=== PATIENT | female | born 1930 | race Caucasian/White ===

== ENCOUNTER 2017-09-18 12:50 | Emergency (ER) | payer MEDICARE ==
[2017-09-18] MEDS ORDERED: Sodium Chloride 0.9% 1000 ML 1,000 ML ONE (13:12)
[2017-09-18] MEDS ORDERED: Sodium Chloride 0.9% 1000 ML 1,000 ML IV SCH (13:15)
--- NOTE | 2017-09-18 13:20 | ERPHSYRPT ---
- History of Present Illness Time Seen by Provider: 09/18/17 13:19 Source: patient, EMS Exam Limitations: no limitations Patient Subjective Stated Complaint: PT ALERT, RESP EASY, SKIN W/D PINK,. PT HAS EDEMA TO LOWER LEGS Triage Nursing Assessment: PT HERE FOR DIZZINESS AND WEAKNESS THAT STARTED TODAY , PT DENIES NAUSEA, FEVER, COUGH Physician History: Came to the emergency room with complaining of dizziness and worsening pedal edema. Patient has a history of myelodysplastic syndrome. Patient denies any shortness of breath, chest pain, nausea, vomiting, abdominal pain, diarrhea, rectal bleeding, hematemesis. Timing/Duration: today Associated Symptoms: denies symptoms Allergies/Adverse Reactions: butorphanol tartrate [From Stadol] Allergy (Severe, Verified 09/18/17 13:04) diphenhydramine HCl [From Benadryl] Allergy (Severe, Verified 09/18/17 13:04) indomethacin [From Indocin] Allergy (Severe, Verified 09/18/17 13:04) indomethacin sodium [From Indocin] Allergy (Severe, Verified 09/18/17 13:04) leflunomide [From Arava] Allergy (Severe, Verified 09/18/17 13:04) meperidine HCl [From Demerol] Allergy (Severe, Verified 09/18/17 13:04) metformin HCl [From Glucophage] Allergy (Severe, Verified 09/18/17 13:04) morphine Allergy (Severe, Verified 09/18/17 13:04) nalbuphine HCl [From Nubain] Allergy (Severe, Verified 09/18/17 13:04) promethazine HCl [From Phenergan] Allergy (Severe, Verified 09/18/17 13:04) quinine [Quinine] Allergy (Severe, Verified 09/18/17 13:04) Sulfa (Sulfonamide Antibiotics) [Sulfa(Sulfonamide Antibiotics)] Allergy (Severe , Verified 09/18/17 13:04) infliximab [From Remicade] Adverse Reaction (Unknown, Verified 09/18/17 13:04) Home Medications: Furosemide 40 mg [Lasix 40 MG] 20 mg PO DAILY 03/17/12 [History] Glimepiride 2 mg [Amaryl 2 MG] 2 mg PO DAILY 03/17/12 [History] Metoprolol Succinate 25 mg Xl* [Toprol-Xl 25MG Tablets] 25 mg PO BID [History] Telmisartan 80 mg [Micardis 80 MG Tablet] 80 mg PO DAILY 11/26/14 [History ] Aspirin 81 gm Chew [Baby Aspirin 81 mg Chew] 81 mg PO DAILY 12/09/15 [ History] Atorvastatin Calcium [Lipitor 40Mg] 40 mg PO QHS 07/23/16 [History] Ergocalciferol (Vitamin D2) [Vitamin D] 50,000 unit PO WEEKLY 11/30/16 [History] Ferrous Sulfate 325 mg [Feosol 325 mg] 325 mg .ROUTE BID 09/18/17 [History ] Hx Tetanus, Diphtheria Vaccination/Date Given: Yes Hx Influenza Vaccination/Date Given: Yes Hx Pneumococcal Vaccination/Date Given: Yes Immunizations Up to Date: Yes - Review of Systems Constitutional: Fatigue, Weakness, No Fever, No Chills Eyes: No Symptoms Ears, Nose, & Throat: No Symptoms Respiratory: No Cough, No Dyspnea Cardiac: No Chest Pain, No Edema, No Syncope Abdominal/Gastrointestinal: No Abdominal Pain, No Nausea, No Vomiting, No Diarrhea Genitourinary Symptoms: No Dysuria Musculoskeletal: No Back Pain, No Neck Pain Skin: No Rash Neurological: No Dizziness, No Focal Weakness, No Sensory Changes Psychological: No Symptoms Endocrine: No Symptoms All Other Systems: Reviewed and Negative - Past Medical History Pertinent Past Medical History: Yes Neurological History: Migraines ENT History: Cataracts Cardiac History: Angina, Coronary Artery Disease, High Cholesterol, Hypertension , Myocardial Infarction ([place]) Respiratory History: CHF, Pulmonary Embolism, Other Endocrine Medical History: Diabetes Type I Musculoskeletal History: Arthritis, Fractures, Osteoarthritis, Rheumatoid Arthritis GI Medical History: No Pertinent History History: No Pertinent History Psycho-Social History: No Pertinent History Female Reproductive Disorders: Breast Cancer, Fibroids Other Medical History: interstial lung disease, pt states hairline fx in foot, MDS - Past Surgical History Past Surgical History: Yes Neuro Surgical History: No Pertinent History Cardiac: Cardiac Catheterization, Cardiac Stent Respiratory: Other Gastrointestinal: Appendectomy, Bowel Surgery, Other Genitourinary: No Pertinent History Musculoskeletal: Joint Replacement Female Surgical History: Hysterectomy, Lumpectomy, Other Other Surgical History: colostomy - Social History Smoking Status: Former smoker How long have you smoked: 15 Exposure to second hand smoke: No Drug Use: none Patient Lives Alone: No - Female History Hx Last Menstrual Period: POST Hx Now: No - Nursing Vital Signs Nursing Vital Signs: Initial Vital Signs Temperature 97.0 F 09/18/17 12:52 Pulse Rate 81 09/18/17 12:52 Respiratory Rate 28 H 09/18/17 12:52 Blood Pressure 125/54 09/18/17 12:52 O2 Sat by Pulse Oximetry 99 09/18/17 12:52 Pain Scale Pain Intensity 0 - Physical Exam General Appearance: no apparent distress, alert Eye Exam: PERRL/EOMI, eyes nml inspection Ears, Nose, Throat Exam: normal ENT inspection, TMs normal, pharynx normal, moist mucous membranes Neck Exam: normal inspection, non-tender, supple, full range of motion Respiratory Exam: normal breath sounds, lungs clear, No respiratory distress Cardiovascular Exam: regular rate/rhythm, normal heart sounds, normal peripheral pulses Gastrointestinal/Abdomen Exam: soft, normal bowel sounds, No tenderness, No mass Back Exam: normal inspection, normal range of motion, No CVA tenderness, No vertebral tenderness Extremity Exam: normal inspection, normal range of motion, pelvis stable Neurologic Exam: alert, oriented x 3, cooperative, normal mood/affect, nml cerebellar function, nml station & gait, sensation nml, No motor deficits Skin Exam: normal color, warm, dry, No rash Lymphatic Exam: No adenopathy SpO2: 99 Oxygen Delivery: Room Air - Course Nursing assessment & vital signs reviewed: Yes Ordered Tests: Active Orders 24 hr Category Date Time Status EKG-ER Only STAT Care 09/18/17 13:01 Active CHEST 2 VIEWS (PA AND LAT) Stat Exams 09/18/17 13:02 Taken CBC W DIFF Stat Lab 09/18/17 13:19 Completed CMP Stat Lab 09/18/17 13:19 Completed TROPONIN Stat Lab 09/18/17 13:19 Completed Medication Summary Generic Name Dose Route Start Last Admin Trade Name Freq PRN Reason Stop Dose Admin Sodium Chloride 1,000 mls @ 50 mls/hr 09/18/17 13:15 09/18/17 13:13 Sodium Chloride 0.9% 1000 Ml IV 10/18/17 13:14 50 mls/hr .Q20H MARIS Administration Lab/Rad Data: Laboratory Result Diagrams 09/18/17 13:19 09/18/17 13:19 Laboratory Results 09/18/17 09/18/17 09/18/17 Range/Units 13:19 13:19 13:19 WBC 7.7 (4.0-10.5) K/mm3 RBC 3.86 L (4.1-5.4) M/mm3 Hgb 11.5 L (12.0-16.0) gm/dl Hct 36.0 (35-47) % MCV 93.3 (78-100) fl MCH 29.7 (26-32) pg MCHC 31.9 L (32-36) g/dl RDW 13.5 (11.5-14.0) % Plt Count 236 (150-450) K/mm3 MPV 11.4 H (6-9.5) fl Gran % 64.1 (36.0-66.0) % Lymphocytes % 22.4 L (24.0-44.0) % Monocytes % 11.8 (0.0-12.0) % Eosinophils % 1.6 (0.00-5.0) % Basophils % 0.1 (0.0-0.4) % Basophils # 0.01 (0-0.4) Sodium 137 (136-145) mEq/L Potassium 4.5 (3.5-5.1) mEq/L Chloride 100 (98-107) mEq/L Carbon Dioxide 24.4 (21-32) mEq/L Anion Gap 17.0 H (5-15) MEQ/L BUN 42 H (9-20) mg/dL Creatinine 1.63 H (0.55-1.30) mg/dl Estimated GFR 32 ML/MIN Glucose 281 H (70-110) MG/DL Calcium 10.9 H (8.5-10.1) mg/dL Total Bilirubin 0.50 (0.2-1.0) mg/dL AST 22 (15-37) U/L ALT 24 (12-78) U/L Alkaline Phosphatase 96 (46-116) U/L Troponin I < 0.017 (0.000-0.056) ng/ml Serum Total Protein 7.5 (6.4-8.2) gm/dL Albumin 3.3 L (3.4-5.0) g/dL - Progress Progress: improved Counseled pt/family regarding: lab results, diagnosis, need for follow-up, rad results - Departure Time of Disposition: 14:10 Departure Disposition: Home Clinical Impression: Dizziness Chronic kidney disease Qualifiers: Chronic kidney disease stage: stage 3 (moderate) Qualified Code(s): N18.3 - Chronic kidney disease, stage 3 (moderate) Condition: Stable Critical Care Time: Yes Critical Care Time(excluding separately billable procedures): 30-74 minutes Referrals: SHITAL COLEMAN [Primary Care Provider] - Additional Instructions: Please follow the instructions given to you. Please take your medication as prescribed if given. If symptoms recur or get worse, come back to the emergency room if you cannot reach your primary care physician, or call your primary care physician for an appointment. Again if your symptoms get worse, come back to the emergency room. Thanks for visiting emergency room, and let us take care of you.
[2017-09-18 13:25] LABS: BASOPHIL % 0.1 % (0.0-0.4); Eosinophil % 1.6 % (0.00-5.0); Granulocytes % 64.1 % (36.0-66.0); Lymphocytes % 22.4 % (24.0-44.0); Mean Cell Volume 93.3 fl (78-100); Mean Platelet Volume 11.4 fl (6-9.5); Monocytes % 11.8 % (0.0-12.0); Platelet Count 236 K/mm3 (150-450); Red Blood Count 3.86 M/mm3 (4.1-5.4); Red Cell Distribution Width 13.5 % (11.5-14.0); White Blood Count 7.7 K/mm3 (4.0-10.5)
[2017-09-18 13:26] LABS: Mean Corpuscular Hemoglobin 29.7 pg (26-32)
[2017-09-18 13:53] LABS: ALBUMIN 3.3 g/dL (3.4-5.0); BILIRUBIN,TOTAL 0.5 mg/dL (0.2-1.0); Carbon Dioxide 24.4 mEq/L (21-32); Potassium 4.5 mEq/L (3.5-5.1); Total Protein 7.5 gm/dL (6.4-8.2)
[2017-09-18 13:55] VITALS: BP 127/57; PULSE 74
[2017-09-18 13:59] VITALS: O2SAT 99
--- NOTE | 2017-09-18 21:44 | XRAY ---
Indication: Weakness. Comparison: November 03, 2015. AP/lateral chest remains clear again with incidental calcified granulomas and azygos lobe. Heart is not enlarged. Vascularity normal. Aorta remains mildly calcified. Bony thorax intact again with osteopenia and degenerative changes. Impression: Stable nonacute chest with chronic features.
== END 2017-09-18 14:27 | disposition home or self-care (01) ==
LOC: ED 12:50
DX: R42 Dizziness and giddiness (principal); N18.3 Chronic kidney disease, stage 3 (moderate); R53.83 Other fatigue; I50.9 Heart failure, unspecified; I25.10 Atherosclerotic heart disease of native coronary artery without angina pectoris; E78.00 Pure hypercholesterolemia, unspecified; I10 Essential (primary) hypertension; I25.2 Old myocardial infarction; I26.99 Other pulmonary embolism without acute cor pulmonale; Z79.899 Other long term (current) drug therapy
CPT/HCPCS: 36000; 36415; 71020; 80053; 84484; 85025; 93005; 96360; 99284

== ENCOUNTER 2018-02-24 15:35 | Observation (INO) | payer MEDICARE ==
[2018-02-24 16:18] LABS: BASOPHIL % 0.3 % (0.0-0.4); Basophil (Absolute #) 0.02 (0-0.4); Eosinophil % 1.8 % (0.00-5.0); Eosinophil (Absolute #) 0.14 (0-0.5); Granulocyte Absolute (ANC) 5.16 (1.4-6.9); Granulocytes % 67.5 % (36.0-66.0); Hematocrit 36.9 % (35-47); Hemoglobin 11.9 gm/dl (12.0-16.0); Lymphocyte (Absolute #) 1.61 (1.0-4.6); Mean Cell Volume 94.4 fl (78-100); Mean Corpuscular Hemoglobin 30.4 pg (26-32); Mean Corpuscular Hgb Concent. 32.2 g/dl (32-36); Mean Platelet Volume 10.9 fl (6-9.5); Monocyte (Absolute #) 0.72 (0.0-1.3); Monocytes % 9.4 % (0.0-12.0); Platelet Count 274 K/mm3 (150-450); Red Blood Count 3.91 M/mm3 (4.1-5.4); White Blood Count 7.7 K/mm3 (4.0-10.5)
--- NOTE | 2018-02-24 16:23 | ERPHSYRPT ---
- History of Present Illness Time Seen by Provider: 02/24/18 16:07 Historian: patient, other (daughter) Exam Limitations: other (poor historian) Patient Subjective Stated Complaint: pt here for chest pain off and on today, 3 episodes today to center of chest nonradiating. no pain at present time, pt had nitro and asa today Triage Nursing Assessment: pt alert, resp easy, skin w/d/p,abd soft, edema to lower legs, pt deneis any pain at present Physician History: Pt started c/o sternal chest pain off and on since this morning. According to her daughter, she had similar chest pains over the weekend, she took her to her [employer], who gave her new NTG prescriptions, since the old ones were outdated. She was given ASA and NTG by EMS, states her pain improved, but did not resolve completely. Timing/Duration: today, improved Activities at Onset: none Quality: dullness, pressure Location: central Chest Pain Radiation: no radiation Severity of Pain-Max: moderate Severity of Pain-Current: mild Modifying Factors: Improves With: nothing Associated Symptoms: denies symptoms Prior Chest Pain/Cardiac Workup: cardiac cath, heart attack Nitro Today/Relief: 0.4 mg x 3 Aspirin Treatment Today: 81 mg x 4 Allergies/Adverse Reactions: butorphanol tartrate [From Stadol] Allergy (Severe, Verified 02/24/18 15:48) diphenhydramine HCl [From Benadryl] Allergy (Severe, Verified 02/24/18 15:48) indomethacin [From Indocin] Allergy (Severe, Verified 02/24/18 15:48) indomethacin sodium [From Indocin] Allergy (Severe, Verified 02/24/18 15:48) leflunomide [From Arava] Allergy (Severe, Verified 02/24/18 15:48) meperidine HCl [From Demerol] Allergy (Severe, Verified 02/24/18 15:48) metformin HCl [From Glucophage] Allergy (Severe, Verified 02/24/18 15:48) morphine Allergy (Severe, Verified 02/24/18 15:48) nalbuphine HCl [From Nubain] Allergy (Severe, Verified 02/24/18 15:48) promethazine HCl [From Phenergan] Allergy (Severe, Verified 02/24/18 15:48) quinine [Quinine] Allergy (Severe, Verified 02/24/18 15:48) Sulfa (Sulfonamide Antibiotics) [Sulfa(Sulfonamide Antibiotics)] Allergy (Severe , Verified 02/24/18 15:48) infliximab [From Remicade] Adverse Reaction (Unknown, Verified 02/24/18 15:48) Home Medications: Furosemide 40 mg [Lasix 40 MG] 20 mg PO UD 03/17/12 [History] Glimepiride 2 mg [Amaryl 2 MG] 2 mg PO DAILY 03/17/12 [History] Metoprolol Succinate 25 mg Xl* [Toprol-Xl 25MG Tablets] 25 mg PO BID [History] Telmisartan 80 mg [Micardis 80 MG Tablet] 80 mg PO DAILY 11/26/14 [History ] Aspirin 81 gm Chew [Baby Aspirin 81 mg Chew] 81 mg PO DAILY 12/09/15 [ History] Atorvastatin Calcium [Lipitor 40Mg] 40 mg PO QHS 07/23/16 [History] Nifedipine Xl 30 mg [Adalat CC 30 MG TABLET] 30 mg PO BID 10/25/17 [ History] Potassium Chloride 10 Meq Tab* [Klor Con 10 MEQ] 10 meq PO DAILY 10/25/17 [ History] Sitagliptin Phosphate 50 MG [Januvia 50 MG] 25 mg PO DAILY 10/25/17 [ History] Acetaminophen [Tylenol Arthritis] 650 mg PO BID 11/16/17 [History] Ferrous Sulfate 325 mg [Feosol 325 mg] 325 mg PO BID 12/27/17 [History] Hx Tetanus, Diphtheria Vaccination/Date Given: Yes Hx Influenza Vaccination/Date Given: Yes Hx Pneumococcal Vaccination/Date Given: Yes Immunizations Up to Date: Yes - Review of Systems Constitutional: No Symptoms Respiratory: No Symptoms Cardiac: Chest Pain, Edema All Other Systems: Reviewed and Negative - Past Medical History Pertinent Past Medical History: Yes Neurological History: Dementia, Migraines ENT History: Cataracts Cardiac History: Angina, Coronary Artery Disease, High Cholesterol, Hypertension , Myocardial Infarction ([place]) Respiratory History: CHF, Pulmonary Embolism, Other Endocrine Medical History: Diabetes Type I Musculoskeletal History: Arthritis, Fractures, Osteoarthritis, Rheumatoid Arthritis GI Medical History: No Pertinent History History: No Pertinent History Psycho-Social History: No Pertinent History Female Reproductive Disorders: Breast Cancer, Fibroids Other Medical History: interstial lung disease, pt states hairline fx in foot, MDS - Past Surgical History Past Surgical History: Yes Neuro Surgical History: No Pertinent History Cardiac: Cardiac Catheterization, Cardiac Stent Respiratory: Other Gastrointestinal: Appendectomy, Bowel Surgery, Other Genitourinary: No Pertinent History Musculoskeletal: Joint Replacement Female Surgical History: Hysterectomy, Lumpectomy, Other Other Surgical History: colostomy - Social History Smoking Status: Former smoker How long have you smoked: 15 Exposure to second hand smoke: No Drug Use: none Patient Lives Alone: No (long term) - Female History Hx Last Menstrual Period: post Hx Now: No - Nursing Vital Signs Nursing Vital Signs: Initial Vital Signs Temperature 97.6 F 02/24/18 15:36 Pulse Rate 77 02/24/18 15:36 Respiratory Rate 20 02/24/18 15:36 Blood Pressure 143/69 02/24/18 15:36 O2 Sat by Pulse Oximetry 99 02/24/18 15:36 Pain Scale Pain Intensity 0 - Physical Exam General Appearance: no apparent distress Eye Exam: eyes nml inspection Ears, Nose, Throat Exam: normal ENT inspection Neck Exam: normal inspection, non-tender, supple, No JVD Respiratory Exam: normal breath sounds, lungs clear, airway intact, No chest tenderness, No respiratory distress Cardiovascular Exam: regular rate/rhythm, normal heart sounds, normal peripheral pulses, edema, other (chronic edema and stasis on both sides.), No murmur Gastrointestinal/Abdomen Exam: soft, normal bowel sounds, No tenderness, No distention Back Exam: normal inspection Extremity Exam: pedal edema, swelling, No calf tenderness, No abrahan's sign Skin Exam: normal color, warm, dry Lymphatic Exam: No adenopathy SpO2 Interpretation: normal SpO2: 99 Oxygen Delivery: Room Air - Course Nursing assessment & vital signs reviewed: Yes EKG Interpreted by Me: RATE (71/min), Left Sidney Deviation, Right Bundle Branch Block, Non-specific ST Changes - Radiology Exams Chest X-ray Interpretation: Interpreted by me, Negative Ordered Tests: Active Orders 24 hr Category Date Time Status Bedrest with BRP/BSC ROUTINE Activity 02/24/18 17:37 Ordered Substance Abuse Rn STAT Care 02/24/18 16:06 Active Code Status Order ROUTINE Care 02/24/18 17:37 Ordered EKG-ER Only STAT Care 02/24/18 16:05 Active IV Care Q6H Care 02/24/18 17:37 Ordered IV Insertion STAT Care 02/24/18 16:05 Active Implement Chest Pain Pathway ROUTINE Care 02/24/18 17:37 Ordered Oxygen-ED Only NASAL CANNULA 2 lpm Care 02/24/18 16:[address] in Observation ROUTINE Care 02/24/18 17:37 Ordered Pulse Oximetry (ED) STAT Care 02/24/18 16:05 Active Danny Izaguirre, Apply ROUTINE Care 02/24/18 17:37 Ordered Telemetry ROUTINE Care 02/24/18 17:37 Ordered Weight,Daily 0600 Care 02/24/18 17:37 Ordered Cardiac Diet Diet 02/24/18 Breakfast Ordered CHEST 1 VIEW (PORTABLE) Stat Exams 02/24/18 16:06 Taken CBC W DIFF Stat Lab 02/24/18 16:05 Completed CK-Creatinine Phosphokinase Stat Lab 02/24/18 16:20 Completed CMP Stat Lab 02/24/18 16:20 Completed LIPID PROFILE AM.LAB Lab 02/25/18 04:00 Ordered NT PRO BNP Stat Lab 02/24/18 16:20 Completed PROTIME WITH INR Stat Lab 02/24/18 16:05 Completed PTT Stat Lab 02/24/18 16:05 Completed TROPONIN AM.LAB Lab 02/25/18 04:00 Ordered TROPONIN Q3H Lab 02/24/18 16:15 Completed TROPONIN Q3H Lab 02/24/18 19:15 Ordered TROPONIN Q3H Lab 02/24/18 22:15 Ordered TROPONIN Q3H Lab 02/25/18 01:15 Ordered TROPONIN Q3H Lab 02/25/18 04:15 Ordered EKG Q8HX2,QAMX3,PRN RT 02/24/18 17:37 Ordered Pulse Oximetry Q4H RT 02/24/18 17:37 Ordered Medication Summary Generic Name Dose Route Start Last Admin Trade Name Freq PRN Reason Stop Dose Admin Acetaminophen 650 mg 02/24/18 17:37 Tylenol 325 Mg PO 03/26/18 17:36 Q4H PRN PRN PAIN AND/OR FEVER Al Hydrox/Mg Hydrox/Simethicone 30 ml 02/24/18 17:37 Maalox Es 30 Ml Unit Dose PO 03/26/18 17:36 Q4H PRN PRN INDIGESTION Aspirin 325 mg 02/25/18 10:00 Ecotrin 325 Mg PO 03/27/18 09:59 DAILY MARIS Magnesium Hydroxide 30 - 60 ml 02/24/18 17:37 Milk Of Magnesia 30 Ml PO 03/26/18 17:36 QDP PRN CONSTIPATION Ondansetron HCl 4 mg 02/24/18 17:37 Zofran 4 Mg/2 Ml Vial IV 03/26/18 17:36 Q4H PRN PRN NAUSEA/VOMITING Senna/Docusate Sodium 2 udtab 02/24/18 17:37 Senokot-S Tablet PO 03/26/18 17:36 BID PRN PRN CONSTIPATION Discontinued Medications Generic Name Dose Route Start Last Admin Trade Name Freq PRN Reason Stop Dose Admin Nitroglycerin 1 gm 02/24/18 17:36 Nitro-Bid 2% Ud Packets TOP 02/24/18 17:37 STAT ONE Lab/Rad Data: Laboratory Result Diagrams 02/24/18 16:05 02/24/18 16:20 Laboratory Results 02/24/18 02/24/18 02/24/18 Range/Units 16:20 16:15 16:05 WBC (4.0-10.5) K/mm3 RBC (4.1-5.4) M/mm3 Hgb (12.0-16.0) gm/dl Hct (35-47) % MCV (78-100) fl MCH (26-32) pg MCHC (32-36) g/dl RDW (11.5-14.0) % Plt Count (150-450) K/mm3 MPV (6-9.5) fl Gran % (36.0-66.0) % Eos # (Auto) (0-0.5) Absolute Lymphs (auto) (1.0-4.6) Absolute Monos (auto) (0.0-1.3) Lymphocytes % (24.0-44.0) % Monocytes % (0.0-12.0) % Eosinophils % (0.00-5.0) % Basophils % (0.0-0.4) % Absolute Granulocytes (1.4-6.9) Basophils # (0-0.4) PT 12.2 (9.95-12.35) SECONDS INR 1.10 (0.8-3.0) APTT 33.5 (25.3-37.0) SECONDS Sodium 139 (137-145) mmol/L Potassium 3.5 (3.5-5.1) mmol/L Chloride 103 (98-107) mmol/L Carbon Dioxide 27 (22-30) mmol/L Anion Gap 12.8 (5-15) MEQ/L BUN 27 H (7-17) mg/dL Creatinine 1.32 H (0.52-1.04) mg/dL Estimated GFR 40.3 ML/MIN Glucose 188 H (74-106) mg/dL Calcium 10.3 H (8.4-10.2) mg/dL Total Bilirubin 0.60 (0.2-1.3) mg/dL AST 17 (14-36) U/L ALT 16 (0-35) U/L Alkaline Phosphatase 129 H (38-126) U/L Creatine Kinase 27 L (30-135) U/L Troponin I < 0.012 (0.000-0.034) ng/mL NT-Pro-B Natriuret Pep 428 (0-1800) pg/mL Serum Total Protein 7.1 (6.3-8.2) g/dL Albumin 3.7 (3.5-5.0) g/dL 02/24/18 Range/Units 16:05 WBC 7.7 (4.0-10.5) K/mm3 RBC 3.91 L (4.1-5.4) M/mm3 Hgb 11.9 L (12.0-16.0) gm/dl Hct 36.9 (35-47) % MCV 94.4 (78-100) fl MCH 30.4 (26-32) pg MCHC 32.2 (32-36) g/dl RDW 14.0 (11.5-14.0) % Plt Count 274 (150-450) K/mm3 MPV 10.9 H (6-9.5) fl Gran % 67.5 H (36.0-66.0) % Eos # (Auto) 0.14 (0-0.5) Absolute Lymphs (auto) 1.61 (1.0-4.6) Absolute Monos (auto) 0.72 (0.0-1.3) Lymphocytes % 21.0 L (24.0-44.0) % Monocytes % 9.4 (0.0-12.0) % Eosinophils % 1.8 (0.00-5.0) % Basophils % 0.3 (0.0-0.4) % Absolute Granulocytes 5.16 (1.4-6.9) Basophils # 0.02 (0-0.4) PT (9.95-12.35) SECONDS INR (0.8-3.0) APTT (25.3-37.0) SECONDS Sodium (137-145) mmol/L Potassium (3.5-5.1) mmol/L Chloride (98-107) mmol/L Carbon Dioxide (22-30) mmol/L Anion Gap (5-15) MEQ/L BUN (7-17) mg/dL Creatinine (0.52-1.04) mg/dL Estimated GFR ML/MIN Glucose (74-106) mg/dL Calcium (8.4-10.2) mg/dL Total Bilirubin (0.2-1.3) mg/dL AST (14-36) U/L ALT (0-35) U/L Alkaline Phosphatase (38-126) U/L Creatine Kinase (30-135) U/L Troponin I (0.000-0.034) ng/mL NT-Pro-B Natriuret Pep (0-1800) pg/mL Serum Total Protein (6.3-8.2) g/dL Albumin (3.5-5.0) g/dL - Progress Progress: improved Air Movement: fair Progress Note: 02/24/18 17:40 Pt has been pain free, no sign of shortness of breath or distress, she has been comfortable. 02/24/18 17:[address] Renae, discussed her results and current condition, she agreed to admit her for Observation./ Discussed with : Oc Will see patient in: hospital (observation) - Departure Time of Disposition: 17:41 Departure Disposition: Observation Clinical Impression: Chest pain Qualifiers: Chest pain type: unspecified Qualified Code(s): R07.9 - Chest pain, unspecified Condition: Stable Critical Care Time: No Referrals: SHITAL COLEMAN [Primary Care Provider] -
[2018-02-24 16:48] LABS: INR 1.1 (0.8-3.0); PTT 33.5 SECONDS (25.3-37.0)
[2018-02-24 16:52] LABS: ALBUMIN 3.7 g/dL (3.5-5.0); ANION GAP 12.8 MEQ/L (5-15); BILIRUBIN,TOTAL 0.6 mg/dL (0.2-1.3); Calcium 10.3 mg/dL (8.4-10.2); Creatinine 1 1.32 mg/dL (0.52-1.04); Potassium 3.5 mmol/L (3.5-5.1); Total Protein 7.1 g/dL (6.3-8.2)
[2018-02-24] MEDS ORDERED: NITRO-BID 2% UD PACKETS TOP ONE (17:36)
[2018-02-24] MEDS ORDERED: Senokot-S Tablet PO PRN (17:37)
[2018-02-24] MEDS ORDERED: Zofran 4 MG/2 ML VIAL IV PRN (17:37)
[2018-02-24] MEDS ORDERED: TYLENOL 325 MG PO PRN ×2 (17:37→21:34)
[2018-02-24] MEDS ORDERED: MAALOX ES 30 ML UNIT DOSE PO PRN (17:37)
[2018-02-24] MEDS ORDERED: MILK OF MAGNESIA 30 ML PO PRN (17:37)
[2018-02-24] MEDS ORDERED: NITRO-BID 2% UD PACKETS ONE (17:47)
[2018-02-24] MEDS ORDERED: LIPITOR 40MG PO SCH (22:00)
--- NOTE | 2018-02-24 22:05 | XRAY ---
Indication: Chest pain. Comparison: September 18, 2017. Portable chest remains clear again with incidental scattered calcified granulomas and anatomic variants for azygos lobe. Heart is not enlarged. Stable aortic calcifications. Bony thorax intact again with mild osteopenia and degenerative changes. Impression: Stable nonacute chest with chronic features.
[2018-02-24] MEDS ORDERED: ZOCOR 20MG ONE (22:38)
[2018-02-24] MEDS: ZOCOR 20MG PO SCH (22:44)
[2018-02-24] MEDS: FEOSOL 325 MG PO SCH (22:45)
[2018-02-24] MEDS: Toprol-Xl 25MG Tablets PO SCH (22:45)
[2018-02-24] MEDS: Adalat CC 30 MG TABLET PO SCH (22:45)
[2018-02-24] MEDS: NovoLOG Insulin SQ PRN (22:46)
[2018-02-25 06:16] LABS: Cholesterol 142 mg/dL (50-200); HDL CHOLESTEROL 31 mg/dL (40-60); Risk Ratio 4.6; TRIGLYCERIDE 221 mg/dL (30-150)
[2018-02-25 06:29] LABS: LDL, DIRECT 64 mg/dL (30-100)
[2018-02-25 06:37] LABS: TROPONIN < 0.012 ng/mL (0.000-0.034)
[2018-02-25] MEDS ORDERED: Ecotrin 325 MG PO SCH (10:00)
[2018-02-25] MEDS: Toprol-Xl 25MG Tablets PO SCH ×2 (10:36→23:08)
[2018-02-25] MEDS: Adalat CC 30 MG TABLET PO SCH ×2 (10:36→23:08)
[2018-02-25] MEDS: FEOSOL 325 MG PO SCH ×2 (10:36→23:08)
[2018-02-25] MEDS: NovoLOG Insulin SQ PRN ×2 (11:38→17:44)
--- NOTE | 2018-02-25 12:46 | PCM.SSS ---
History of Present Illness - Chief Complaint Chief Complaint: Chest Pain History of Present Illness: is a 87 year old female with known CAD who came to ER with chest pain and was admitted to rule out NH. She started having substernal and L-and R- sided burning chest pain 6d ago. She saw Dr. Villa 4d ago and he renewed her nitro rx, which was old. The pain started again yesterday and she took nitro x 3 without relief so came to ER. Her pain resolved in the ER but she was kept for observation on telemetry. Her troponins have been normal x 5. EKGs without acute change. She is complaining this morning of 5/10 burning chest pain. The nurse noted she took her pills while lying down and this has happened to her in this instance before. She has a history of remote cardiac catheterization with stent placement. Last stress test probably 3-[address] Villa asked at the last appointment if she would like any procedures/testing done, and the pt refused. She is a fairly poor historian, but her daughter is at bedside. Pt is AAO x 3. - Review of Systems Cardiac: Chest Pain Musculoskeletal: Back Pain (chronic) Psychological: Depression, Suicidal Ideations (has thought about it a time or two but no current suicidal ideation) Hematologic/Lymphatic: Anemia All Other Systems: Reviewed and Negative Medications & Allergies Home Medications: Home Medication List Furosemide 40 mg [Lasix 40 MG] 20 mg PO UD 03/17/12 [History Confirmed ] Glimepiride 2 mg [Amaryl 2 MG] 2 mg PO DAILY 03/17/12 [History Confirmed 02/24/18] Metoprolol Succinate 25 mg Xl* [Toprol-Xl 25MG Tablets] 25 mg PO BID [History Confirmed 02/24/18] Telmisartan 80 mg [Micardis 80 MG Tablet] 80 mg PO DAILY 11/26/14 [ History Confirmed 02/24/18] Aspirin 81 gm Chew [Baby Aspirin 81 mg Chew] 81 mg PO DAILY 12/09/15 [ History Confirmed 02/24/18] Atorvastatin Calcium [Lipitor 40Mg] 40 mg PO QHS 07/23/16 [History Confirmed ] Nifedipine Xl 30 mg [Adalat CC 30 MG TABLET] 30 mg PO BID 10/25/17 [ History Confirmed 02/24/18] Potassium Chloride 10 Meq Tab* [Klor Con 10 MEQ] 10 meq PO DAILY 10/25/17 [ History Confirmed 02/24/18] Sitagliptin Phosphate 50 MG [Januvia 50 MG] 25 mg PO DAILY 10/25/17 [ History Confirmed 02/24/18] Acetaminophen [Tylenol Arthritis] 650 mg PO BID 11/16/17 [History Confirmed ] Ferrous Sulfate 325 mg [Feosol 325 mg] 325 mg PO BID 12/27/17 [History Confirmed 02/24/18] Allergies/Adverse Reactions: Allergies Allergy/AdvReac Type Severity Reaction Status Date / Time butorphanol tartrate Allergy Severe Verified 02/24/18 15:48 [From Stadol] diphenhydramine HCl Allergy Severe Verified 02/24/18 15:48 [From Benadryl] indomethacin [From Indocin] Allergy Severe Verified 02/24/18 15:48 indomethacin sodium Allergy Severe Verified 02/24/18 15:48 [From Indocin] leflunomide [From Arava] Allergy Severe Verified 02/24/18 15:48 meperidine HCl [From Demerol] Allergy Severe Verified 02/24/18 15:48 metformin HCl Allergy Severe Verified 02/24/18 15:48 [From Glucophage] morphine Allergy Severe Verified 02/24/18 15:48 nalbuphine HCl [From Nubain] Allergy Severe Verified 02/24/18 15:48 promethazine HCl Allergy Severe Verified 02/24/18 15:48 [From Phenergan] quinine [Quinine] Allergy Severe Verified 02/24/18 15:48 Sulfa (Sulfonamide Allergy Severe Verified 02/24/18 15:48 Antibiotics) [Sulfa(Sulfonamide Antibiotics)] infliximab [From Remicade] AdvReac Unknown Verified 02/24/18 15:48 - Past Medical History Past Medical History: Yes Neurological History: Dementia ENT History: Cataracts Cardiac History: Angina, Coronary Artery Disease, High Cholesterol, Hypertension , Myocardial Infarction (NH) Respiratory History: CHF, Pulmonary Embolism, Other Endocrine Medical History: Diabetes Type II Musculoskelatal History: Arthritis, Fractures, Osteoarthritis, Rheumatoid Arthritis GI Medical History: No Pertinent History History: No Pertinent History Pyscho-Social History: No Pertinent History Reproductive Disorders: Breast Cancer, Fibroids Comment: interstial lung disease, pt states hairline fx in foot,MDS - Female History Hx Last Menstrual Period: post Are you now?: No - Past Surgical History Past Surgical History: Yes Neuro Surgical History: No Pertinent History Cardiac History: Cardiac Catheterization, Cardiac Stent Respiratory Surgery: Other GI Surgical History: Appendectomy, Bowel Surgery, Other Genitourinary Surgical Hx: No Pertinent History Musculskeletal Surgical Hx: Joint Replacement Female Surgical History: Hysterectomy, Lumpectomy, Other Other Surgical History: colostomy - Social History Smoking Status: Former smoker How long have you smoked: 15 Exposure to second hand smoke: No Alcohol: None Drug Use: none - Physical Exam Vital Signs: Vital Signs - 24 hr Temp Pulse Pulse Resp BP Pulse Ox 02/25/18 11:16 98.6 F 72 16 142/62 96 02/25/18 08:00 97 02/25/18 07:22 98.7 F 70 16 148/68 97 02/25/18 07:21 99 02/25/18 04:00 97.9 F 75 20 160/70 99 02/25/18 00:00 97.6 F 75 18 171/76 96 02/24/18 20:01 97.9 F 83 19 186/77 98 02/24/18 20:00 97 02/24/18 19:55 97.9 F 83 19 186/77 98 02/24/18 19:40 98 02/24/18 17:52 76 16 163/89 99 02/24/18 17:41 99 02/24/18 17:03 80 18 168/94 99 02/24/18 16:44 72 16 152/81 98 02/24/18 16:41 98 02/24/18 15:40 75 02/24/18 15:36 97.6 F 77 20 143/69 99 Oxygen-Last 24 hours O2 Percentage 2 Liters = 28% O2 Percentage 2 Liters = 28% O2 Percentage 2 Liters = 28% O2 Percentage 2 Liters = 28% O2 Percentage 2 Liters = 28% O2 Percentage 2 Liters = 28% O2 Percentage 2 Liters = 28% O2 Percentage 2 Liters = 28% General Appearance: no apparent distress, alert, anxiety Neurologic Exam: oriented x 3, cooperative Eye Exam: eyes nml inspection Ears, Nose, Throat Exam: moist mucous membranes Neck Exam: normal inspection, non-tender, supple, No lymphadenopathy Respiratory Exam: normal breath sounds, lungs clear, crackles/rales (faint bibasilar), No rhonchi, No wheezing Cardiovascular Exam: regular rate/rhythm, normal heart sounds, No murmur Gastrointestinal/Abdomen Exam: soft, normal bowel sounds, other (colostomy present LLQ), No tenderness, No distention, No mass, No guarding, No rebound Back Exam: normal inspection, No rash Extremity Exam: swelling (2+ pretibial edema LLE with chronic venous changes distally. 1+ pretibial edema RLE) Skin Exam: normal color, warm, dry, No rash Results - Labs Lab/Micro Results: Accuchecks Date 02/25/18 Date 02/24/18 Time 07:30 Time 22:00 Accucheck Value: 125 Accucheck Value: 227 Lab Results-Last 24 Hours 02/24/18 02/24/18 02/25/18 Range/Units 19:30 22:33 01:30 Troponin I < 0.012 < 0.012 < 0.012 (0.000-0.034) ng/mL Triglycerides (30-150) mg/dL Cholesterol (50-200) mg/dL LDL Cholesterol (30-100) mg/dL HDL Cholesterol (40-60) mg/dL Heart Disease Risk Ratio 02/25/18 Range/Units 05:35 Troponin I < 0.012 (0.000-0.034) ng/mL Triglycerides 221 H (30-150) mg/dL Cholesterol 142 (50-200) mg/dL LDL Cholesterol 64 (30-100) mg/dL HDL Cholesterol 31 L (40-60) mg/dL Heart Disease Risk Ratio 4.6 Accuchecks Date 02/25/18 Date 02/24/18 Time 07:30 Time 22:00 Accucheck Value: 125 Accucheck Value: 227 - Radiology Impressions Radiology Exams & Impressions: Radiology Procedures Category Date Time Status ECHO W/2D AND DOPPLER [US] Routine Exams 02/24/18 19:00 Ordered - Other Procedures and Tests Respiratory Therapy 02/24/18 21:46 Oxygen NASAL CANNULA 2 lpm 02/25/18 11:59 EKG STAT 02/26/18 05:00 EKG DAILY 02/27/18 05:00 EKG DAILY 02/28/18 05:00 EKG DAILY Assessment/Plan (1) Chest pain Current Visit: Yes Status: Acute Qualifiers: Chest pain type: unspecified Qualified Code(s): R07.9 - Chest pain, unspecified Assessment & Plan: NH was ruled out overnight. I did order one more EKG (which is unchanged from yesterday) and one troponin this morning. Ordered zantac, there may be an esophageal irritation component. If her chest pain resolved this afternoon will d/c to home. Code(s): R07.9 - CHEST PAIN, UNSPECIFIED (2) CAD (coronary artery disease) Current Visit: Yes Status: Acute Qualifiers: Coronary Disease-Associated Artery/Lesion type: [place] artery [place] vs. transplanted heart: [place] heart Associated angina: with unstable angina Qualified Code(s): I25.110 - Atherosclerotic heart disease of [place] coronary artery with unstable angina pectoris Assessment & Plan: She does not want procedures done, which is reasonable at her age. Will manage medically/symptomatically. Code(s): I25.10 - ATHSCL HEART DISEASE OF [place] CORONARY ARTERY W/O ANG PCTRS (3) COPD (chronic obstructive pulmonary disease) Current Visit: No Status: Acute Qualifiers: COPD type: unspecified COPD Qualified Code(s): J44.9 - Chronic obstructive pulmonary disease, unspecified (4) Chronic kidney disease Current Visit: No Status: Acute Qualifiers: Chronic kidney disease stage: stage 3 (moderate) Qualified Code(s): N18.3 - Chronic kidney disease, stage 3 (moderate) Code(s): N18.9 - CHRONIC KIDNEY DISEASE, UNSPECIFIED Hospital Summary - Hospital Course Hospital Course: Pt admitted with burning chest pain, resolved in ER with nitro paste. Currently having some burning pain, if it resolves with nitro and/or zantac, should be ok to d/c home this afternoon. If continues to not feel well will defer discharge until tomorrow. - Vitals & Intake/Output Vital Signs: Vital Signs Temperature 98.6 F 02/25/18 11:16 Pulse Rate 72 02/25/18 11:16 Respiratory Rate 16 02/25/18 11:16 Blood Pressure 142/62 02/25/18 11:16 O2 Sat by Pulse Oximetry 96 02/25/18 11:16 Oxygen-Last Documented O2 Percentage 2 Liters = 28% Intake & Output: Intake & Output 02/23/18 02/24/18 02/25/18 02/26/18 11:59 11:59 11:59 11:59 Intake Total 480 Balance 480 Weight 75 kg - Lab Result Diagrams: 02/24/18 16:05 02/24/18 16:20 Lab Results-Last 24 Hrs: Accuchecks Date 02/25/18 Date 02/24/18 Time 07:30 Time 22:00 Accucheck Value: 125 Accucheck Value: 227 Lab Results-Last 24 Hours 02/24/18 02/24/18 02/25/18 Range/Units 19:30 22:33 01:30 Troponin I < 0.012 < 0.012 < 0.012 (0.000-0.034) ng/mL Triglycerides (30-150) mg/dL Cholesterol (50-200) mg/dL LDL Cholesterol (30-100) mg/dL HDL Cholesterol (40-60) mg/dL Heart Disease Risk Ratio 02/25/18 Range/Units 05:35 Troponin I < 0.012 (0.000-0.034) ng/mL Triglycerides 221 H (30-150) mg/dL Cholesterol 142 (50-200) mg/dL LDL Cholesterol 64 (30-100) mg/dL HDL Cholesterol 31 L (40-60) mg/dL Heart Disease Risk Ratio 4.6 Micro Results-Entire Visit: Accuchecks Date 02/25/1802/24/18 Time 07:30 Time 22:00 Accucheck Value: 125 Accucheck Value: 227 - Radiology Exams Ordered Rad Exams-Entire Visit: Radiology Procedures Category Date Time Status ECHO W/2D AND DOPPLER [US] Routine Exams 02/24/18 19:00 Ordered - Procedures and Test Procedures and Tests throughout Hospitalization: Therapy Orders & Screens 02/24/18 21:46 Oxygen NASAL CANNULA 2 lpm Comment: HOME O2 2L AT NIGHT Diagnosis: Chest Pain 02/25/18 01:56 EKG ROUTINE Comment: Diagnosis: Chest Pain 02/25/18 11:59 EKG STAT Comment: Diagnosis: Chest Pain 02/26/18 05:00 EKG DAILY Comment: Diagnosis: Chest Pain 02/27/18 05:00 EKG DAILY Comment: Diagnosis: Chest Pain 02/28/18 05:00 EKG DAILY Comment: Diagnosis: Chest Pain - Discharge Disposition: Home, Self-Care Condition: Good Prescriptions: Continue Furosemide 40 mg [Lasix 40 MG] 20 mg PO UD Metoprolol Succinate 25 mg Xl* [Toprol-Xl 25MG Tablets] 25 mg PO BID Glimepiride 2 mg [Amaryl 2 MG] 2 mg PO DAILY Telmisartan 80 mg [Micardis 80 MG Tablet] 80 mg PO DAILY Aspirin 81 gm Chew [Baby Aspirin 81 mg Chew] 81 mg PO DAILY Atorvastatin Calcium [Lipitor 40Mg] 40 mg PO QHS Sitagliptin Phosphate 50 MG [Januvia 50 MG] 25 mg PO DAILY Potassium Chloride 10 Meq Tab* [Klor Con 10 MEQ] 10 meq PO DAILY Nifedipine Xl 30 mg [Adalat CC 30 MG TABLET] 30 mg PO BID Acetaminophen [Tylenol Arthritis] 650 mg PO BID Ferrous Sulfate 325 mg [Feosol 325 mg] 325 mg PO BID Follow up with: PASTORA GARVEY [Primary Care Provider] - 1 Week SHITAL COLEMAN [Family Provider] - 1 Week
[2018-02-25] MEDS: Pepcid 20 MG PO SCH ×2 (13:26→23:08)
[2018-02-25] MEDS ORDERED: NITRO-BID 2% UD PACKETS TOP SCH (13:38)
[2018-02-25] MEDS ORDERED: Lasix 40 MG PO SCH (15:15)
[2018-02-25] MEDS: Januvia 50 MG PO SCH (16:33)
[2018-02-25] MEDS: Klor Con 10 MEQ PO SCH (16:33)
[2018-02-25] MEDS: Micardis 80 MG Tablet PO SCH (16:34)
[2018-02-25] MEDS: Amaryl 2 MG PO SCH (16:34)
[2018-02-25] MEDS ORDERED: LASIX 20 MG PO SCH (17:00)
[2018-02-25] MEDS ORDERED: LIPITOR 40MG PO SCH (22:00)
[2018-02-25] MEDS: ZOCOR 20MG PO SCH (23:07)
[2018-02-26] MEDS ORDERED: Imdur 30 MG PO SCH (10:00)
[2018-02-26] MEDS ORDERED: Lasix 40 MG PO SCH (10:00)
[2018-02-26] MEDS ORDERED: ECOTRIN 81 MG PO SCH (10:00)
[2018-02-26] MEDS ORDERED: BABY ASPIRIN 81 MG CHEW PO SCH (10:00)
[2018-02-26] MEDS: Amaryl 2 MG PO SCH (10:13)
[2018-02-26] MEDS: Pepcid 20 MG PO SCH (10:13)
[2018-02-26] MEDS: Januvia 50 MG PO SCH (10:13)
[2018-02-26] MEDS: Toprol-Xl 25MG Tablets PO SCH (10:14)
[2018-02-26] MEDS: FEOSOL 325 MG PO SCH (10:15)
[2018-02-26] MEDS: Klor Con 10 MEQ PO SCH (10:15)
[2018-02-26] MEDS: Micardis 80 MG Tablet PO SCH (10:15)
[2018-02-26] MEDS: Adalat CC 30 MG TABLET PO SCH (10:15)
--- NOTE | 2018-02-26 16:03 | PCM.DS ---
Discharge Summary Date of Admission: 02/24/18 18:15 Admitting Physician: DESTINEY FORTUNE Primary Care Provider: PASTORA GARVEY Allergies Allergies butorphanol tartrate [From Stadol] Allergy (Severe, Verified 02/24/18 15:48) diphenhydramine HCl [From Benadryl] Allergy (Severe, Verified 02/24/18 15:48) indomethacin [From Indocin] Allergy (Severe, Verified 02/24/18 15:48) indomethacin sodium [From Indocin] Allergy (Severe, Verified 02/24/18 15:48) leflunomide [From Arava] Allergy (Severe, Verified 02/24/18 15:48) meperidine HCl [From Demerol] Allergy (Severe, Verified 02/24/18 15:48) metformin HCl [From Glucophage] Allergy (Severe, Verified 02/24/18 15:48) morphine Allergy (Severe, Verified 02/24/18 15:48) nalbuphine HCl [From Nubain] Allergy (Severe, Verified 02/24/18 15:48) promethazine HCl [From Phenergan] Allergy (Severe, Verified 02/24/18 15:48) quinine [Quinine] Allergy (Severe, Verified 02/24/18 15:48) Sulfa (Sulfonamide Antibiotics) [Sulfa(Sulfonamide Antibiotics)] Allergy (Severe , Verified 02/24/18 15:48) infliximab [From Remicade] Adverse Reaction (Unknown, Verified 02/24/18 15:48) Hospital Summary - Hospital Course Hospital Course: Pt admitted with chest pain, LA was ruled out. She had relief with nitro paste. I started her on 30mg Imdur daily and she is not having chest pain today. Her BP have been 130s-170s systolic with one recent bp 117 systolic. I advised the family to watch for low bp and she should be getting them taking at assisted living. I advised to watch for signs of hypotension including dizziness on standing. Pt is AAOx3 today although she seems mildly confused about some details. - Vitals & Intake/Output Vital Signs: Vital Signs Temperature 98.0 F 02/26/18 11:02 Pulse Rate 85 02/26/18 11:02 Respiratory Rate 16 02/26/18 11:02 Blood Pressure 117/57 02/26/18 11:02 O2 Sat by Pulse Oximetry 96 02/26/18 11:02 Oxygen-Last Documented O2 Percentage 2 Liters = 28% Intake & Output: Intake & Output 02/24/18 02/25/18 02/26/18 02/27/18 11:59 11:59 11:59 11:59 Intake Total 480 960 240 Output Total 400 Balance 480 560 240 Weight 75 kg 78 kg - Lab Result Diagrams: 02/24/18 16:05 02/24/18 16:20 Lab Results-Last 24 Hrs: Accuchecks Date 02/26/18 Date 02/25/18 Time 07:30 Time 16:30 Accucheck Value: 314 Accucheck Value: 176 Accucheck Value: 127 Accucheck Value: 260 Micro Results-Entire Visit: Accuchecks Date 02/26/18 Date 02/25/18 Time 07:30 Time 16:30 Accucheck Value: 314 Accucheck Value: 176 Accucheck Value: 127 Accucheck Value: 260 - Radiology Exams Ordered Rad Exams-Entire Visit: Radiology Procedures Category Date Time Status ECHO W/2D AND DOPPLER [US] Routine Exams 02/24/18 19:00 Ordered - Procedures and Test Procedures and Tests throughout Hospitalization: Therapy Orders & Screens 02/24/18 21:46 Oxygen NASAL CANNULA 2 lpm Comment: HOME O2 2L AT NIGHT Diagnosis: Chest Pain 02/25/18 01:56 EKG ROUTINE Comment: Diagnosis: Chest Pain 02/25/18 11:59 EKG STAT Comment: Diagnosis: Chest Pain 02/26/18 05:00 EKG DAILY Comment: Diagnosis: Chest Pain 02/27/18 05:00 EKG DAILY Comment: Diagnosis: Chest Pain 02/28/18 05:00 EKG DAILY Comment: Diagnosis: Chest Pain Discharge Exam General Appearance: no apparent distress, alert Neurologic Exam: oriented x 3, cooperative Skin Exam: normal color, warm, dry, No rash Eye Exam: eyes nml inspection Ears, Nose, Throat Exam: moist mucous membranes Respiratory Exam: normal breath sounds, lungs clear, No crackles/rales, No rhonchi, No wheezing Cardiovascular Exam: regular rate/rhythm, normal heart sounds, No murmur Extremity Exam: swelling (trace) Final Diagnosis/Problem List - Final Discharge Diagnosis/Problem (1) Chest pain Current Visit: Yes Status: Acute Assessment & Plan: LA ruled out. I think just angina; pt is medical therapy only at age 87. Better on imdur. (2) CAD (coronary artery disease) Current Visit: Yes Status: Chronic (3) COPD (chronic obstructive pulmonary disease) Current Visit: No Status: Chronic (4) Chronic kidney disease Current Visit: No Status: Chronic - Discharge Disposition: Home, Self-Care Condition: Good Prescriptions: New Isosorbide Mononitrate 30 mg [Imdur 30 MG] 30 mg PO DAILY #30 tab Continue Furosemide 40 mg [Lasix 40 MG] 20 mg PO UD Metoprolol Succinate 25 mg Xl* [Toprol-Xl 25MG Tablets] 25 mg PO BID Glimepiride 2 mg [Amaryl 2 MG] 2 mg PO DAILY Telmisartan 80 mg [Micardis 80 MG Tablet] 80 mg PO DAILY Aspirin 81 gm Chew [Baby Aspirin 81 mg Chew] 81 mg PO DAILY Atorvastatin Calcium [Lipitor 40Mg] 40 mg PO QHS Sitagliptin Phosphate 50 MG [Januvia 50 MG] 25 mg PO DAILY Potassium Chloride 10 Meq Tab* [Klor Con 10 MEQ] 10 meq PO DAILY Nifedipine Xl 30 mg [Adalat CC 30 MG TABLET] 30 mg PO BID Acetaminophen [Tylenol Arthritis] 650 mg PO BID Ferrous Sulfate 325 mg [Feosol 325 mg] 325 mg PO BID Additional Instructions: Watch closely for hypotension and use fall precautions if sublingual nitro is given. Check BP daily for the next two weeks. Report to primary care physician if any blood pressures are under 110 systolic. Report to PCP HELGA if pt is having dizziness or lightheadedness or has a syncopal episode or fall. Follow up with: SHITAL COLEMAN [Family Provider] - 1 Week PASTORA GARVEY [Primary Care Provider] - 1 Week
[2018-02-26 16:18] VITALS: BP 138/65; PULSE 73; O2SAT 95
== END 2018-02-26 16:20 | disposition home or self-care (01) ==
LOC: ED 15:35 → MED SURG 18:15
PROVIDERS: ADMIT Family Medicine; ATTEND Family Medicine
DX: R07.9 Chest pain, unspecified (principal); I25.10 Atherosclerotic heart disease of native coronary artery without angina pectoris; J44.9 Chronic obstructive pulmonary disease, unspecified; N18.9 Chronic kidney disease, unspecified; Z79.899 Other long term (current) drug therapy; F32.9 Major depressive disorder, single episode, unspecified; R45.851 Suicidal ideations
CPT/HCPCS: 36415; 71045; 80053; 80061; 82550; 82962; 83721; 83880; 84484; 85025; 85610; 85730; 93005; 93041; 93268; 94760; 99285; A9270-GY; G0378

== ENCOUNTER 2018-03-05 16:13 | Observation (INO) | payer MEDICARE ==
[2018-03-05 16:57] LABS: BASOPHIL % 0.2 % (0.0-0.4); Basophil (Absolute #) 0.01 (0-0.4); Eosinophil (Absolute #) 0.13 (0-0.5); Granulocyte Absolute (ANC) 4.34 (1.4-6.9); Granulocytes % 67.2 % (36.0-66.0); Hematocrit 32.7 % (35-47); Hemoglobin 10.5 gm/dl (12.0-16.0); Lymphocyte (Absolute #) 1.28 (1.0-4.6); Lymphocytes % 19.8 % (24.0-44.0); Mean Cell Volume 94.2 fl (78-100); Mean Corpuscular Hgb Concent. 32.1 g/dl (32-36); Mean Platelet Volume 11.2 fl (6-9.5); Monocytes % 10.8 % (0.0-12.0); Platelet Count 267 K/mm3 (150-450); Red Blood Count 3.47 M/mm3 (4.1-5.4); White Blood Count 6.5 K/mm3 (4.0-10.5)
[2018-03-05 17:09] LABS: INR 1.06 (0.8-3.0)
--- NOTE | 2018-03-05 17:12 | ERPHSYRPT ---
- History of Present Illness Time Seen by Provider: 03/05/18 16:44 Historian: patient Exam Limitations: no limitations Patient Subjective Stated Complaint: pt arrived per ambulance for chest mike off and on. was seen 2 weeks ago for dame thing, was given nitro with some relief Triage Nursing Assessment: pt alert, but confused at times, co burning to epiastgric area, resp easy, skin w/d/p, edema to lower legs, Physician History: Pt started c/o pain in the retrosternal chest earlier today, radiating across her chest, denies severe SOB< vomiting, diaphoresis, fever other complaints except being nauseated. She was given ASA and NTG, responded with some relief. Timing/Duration: today Activities at Onset: none Quality: burning, pressure Location: substernal Chest Pain Radiation: neck Severity of Pain-Max: moderate Severity of Pain-Current: mild Modifying Factors: Improves With: nothing Associated Symptoms: nausea, heartburn Prior Chest Pain/Cardiac Workup: angina Nitro Today/Relief: 0.4 mg x 2 Aspirin Treatment Today: 81 mg x 4 Allergies/Adverse Reactions: butorphanol tartrate [From Stadol] Allergy (Severe, Verified 03/05/18 16:25) diphenhydramine HCl [From Benadryl] Allergy (Severe, Verified 03/05/18 16:25) indomethacin [From Indocin] Allergy (Severe, Verified 03/05/18 16:25) indomethacin sodium [From Indocin] Allergy (Severe, Verified 03/05/18 16:25) leflunomide [From Arava] Allergy (Severe, Verified 03/05/18 16:25) meperidine HCl [From Demerol] Allergy (Severe, Verified 03/05/18 16:25) metformin HCl [From Glucophage] Allergy (Severe, Verified 03/05/18 16:25) morphine Allergy (Severe, Verified 03/05/18 16:25) nalbuphine HCl [From Nubain] Allergy (Severe, Verified 03/05/18 16:25) promethazine HCl [From Phenergan] Allergy (Severe, Verified 03/05/18 16:25) quinine [Quinine] Allergy (Severe, Verified 03/05/18 16:25) Sulfa (Sulfonamide Antibiotics) [Sulfa(Sulfonamide Antibiotics)] Allergy (Severe , Verified 03/05/18 16:25) infliximab [From Remicade] Adverse Reaction (Unknown, Verified 03/05/18 16:25) Home Medications: Furosemide 40 mg [Lasix 40 MG] 20 mg PO UD 03/17/12 [History] Glimepiride 2 mg [Amaryl 2 MG] 2 mg PO DAILY 03/17/12 [History] Metoprolol Succinate 25 mg Xl* [Toprol-Xl 25MG Tablets] 25 mg PO BID [History] Telmisartan 80 mg [Micardis 80 MG Tablet] 80 mg PO DAILY 11/26/14 [History ] Aspirin 81 gm Chew [Baby Aspirin 81 mg Chew] 81 mg PO DAILY 12/09/15 [ History] Atorvastatin Calcium [Lipitor 40Mg] 40 mg PO QHS 07/23/16 [History] Nifedipine Xl 30 mg [Adalat CC 30 MG TABLET] 30 mg PO BID 10/25/17 [ History] Potassium Chloride 10 Meq Tab* [Klor Con 10 MEQ] 10 meq PO DAILY 10/25/17 [ History] Sitagliptin Phosphate 50 MG [Januvia 50 MG] 25 mg PO DAILY 10/25/17 [ History] Acetaminophen [Tylenol Arthritis] 650 mg PO BID 11/16/17 [History] Ferrous Sulfate 325 mg [Feosol 325 mg] 325 mg PO BID 12/27/17 [History] Hx Tetanus, Diphtheria Vaccination/Date Given: Yes Hx Influenza Vaccination/Date Given: Yes Hx Pneumococcal Vaccination/Date Given: Yes Immunizations Up to Date: Yes - Review of Systems Constitutional: No Symptoms Respiratory: No Cough, No Dyspnea Cardiac: Chest Pain, No Edema Abdominal/Gastrointestinal: Nausea All Other Systems: Reviewed and Negative - Past Medical History Pertinent Past Medical History: Yes Neurological History: Dementia ENT History: Cataracts Cardiac History: Angina, Coronary Artery Disease, High Cholesterol, Hypertension , Myocardial Infarction ([place]) Respiratory History: CHF, Pulmonary Embolism, Other Endocrine Medical History: Diabetes Type II Musculoskeletal History: Arthritis, Fractures, Osteoarthritis, Rheumatoid Arthritis GI Medical History: No Pertinent History History: No Pertinent History Psycho-Social History: No Pertinent History Female Reproductive Disorders: Breast Cancer, Fibroids Other Medical History: interstial lung disease, pt states hairline fx in foot, MDS - Past Surgical History Past Surgical History: Yes Neuro Surgical History: No Pertinent History Cardiac: Cardiac Catheterization, Cardiac Stent Respiratory: Other Gastrointestinal: Appendectomy, Bowel Surgery, Other Genitourinary: No Pertinent History Musculoskeletal: Joint Replacement Female Surgical History: Hysterectomy, Lumpectomy, Other Other Surgical History: colostomy - Social History Smoking Status: Former smoker How long have you smoked: 15 Exposure to second hand smoke: No Drug Use: none Patient Lives Alone: No - Female History Hx Last Menstrual Period: post - Nursing Vital Signs Nursing Vital Signs: Initial Vital Signs Temperature 97.4 F 03/05/18 16:15 Pulse Rate 68 03/05/18 16:15 Respiratory Rate 18 03/05/18 16:15 Blood Pressure 162/70 03/05/18 16:15 O2 Sat by Pulse Oximetry 100 03/05/18 16:15 Pain Scale Pain Intensity 4 - Physical Exam General Appearance: no apparent distress Eye Exam: eyes nml inspection Ears, Nose, Throat Exam: normal ENT inspection Neck Exam: normal inspection, non-tender, supple, No carotid bruit, No JVD Respiratory Exam: normal breath sounds, lungs clear, airway intact, No chest tenderness Cardiovascular Exam: regular rate/rhythm, normal heart sounds, normal peripheral pulses, No murmur Gastrointestinal/Abdomen Exam: soft, normal bowel sounds, No tenderness Back Exam: normal inspection, No CVA tenderness Extremity Exam: normal inspection, No calf tenderness, No abrahan's sign, No pedal edema Neurologic Exam: alert, oriented x 3, cooperative, normal mood/affect Skin Exam: normal color, warm, dry, No rash, No diaphoresis Lymphatic Exam: No adenopathy SpO2 Interpretation: normal SpO2: 99 Oxygen Delivery: Room Air - Course Nursing assessment & vital signs reviewed: Yes EKG Interpreted by Me: RATE (76/min), Right Eola Deviation, Right Bundle Branch Block, Non-specific ST Changes - Radiology Exams Chest X-ray Interpretation: Interpreted by me, Negative Ordered Tests: Active Orders 24 hr Category Date Time Status Bedrest with BRP/BSC ROUTINE Activity 03/05/18 19:05 Ordered Cleaning Technician STAT Care 03/05/18 16:24 Active Code Status Order ROUTINE Care 03/05/18 19:05 Ordered EKG-ER Only STAT Care 03/05/18 16:20 Active IV Care Q6H Care 03/05/18 19:05 Ordered IV Insertion STAT Care 03/05/18 16:20 Active Implement Chest Pain Pathway ROUTINE Care 03/05/18 19:05 Ordered Oxygen-ED Only NASAL CANNULA 2 lpm Care 03/05/18 16:[address] in Observation ROUTINE Care 03/05/18 19:05 Ordered Danny Hose, Apply ROUTINE Care 03/05/18 19:05 Ordered Telemetry ROUTINE Care 03/05/18 19:05 Ordered Weight,Daily 0600 Care 03/05/18 19:05 Ordered Cardiac Diet Diet 03/05/18 Dinner Ordered CHEST 1 VIEW (PORTABLE) Stat Exams 03/05/18 16:39 Taken CBC W DIFF Stat Lab 03/05/18 16:45 Completed CK-Creatinine Phosphokinase Stat Lab 03/05/18 16:45 Completed CMP Stat Lab 03/05/18 16:45 Completed LIPID PROFILE AM.LAB Lab 03/06/18 04:00 Ordered NT PRO BNP Stat Lab 03/05/18 16:45 Completed PROTIME WITH INR Stat Lab 03/05/18 16:45 Completed TROPONIN AM.LAB Lab 03/06/18 04:00 Ordered TROPONIN Q3H Lab 03/05/18 16:45 Completed TROPONIN Q3H Lab 03/05/18 19:45 Ordered TROPONIN Q3H Lab 03/05/18 22:45 Ordered TROPONIN Q3H Lab 03/06/18 01:45 Ordered TROPONIN Q3H Lab 03/06/18 04:45 Ordered EKG Q8HX2,QAMX3,PRN RT 03/05/18 19:05 Ordered Pulse Oximetry Q4H RT 03/05/18 19:05 Ordered Medication Summary Discontinued Medications Generic Name Dose Route Start Last Admin Trade Name Freq PRN Reason Stop Dose Admin Al Hydrox/Mg Hydrox/Simethicone Confirm 03/05/18 17:23 Maalox Es 30 Ml Unit Dose Administered 03/05/18 17:24 Dose 30 ml .ROUTE .STK-MED ONE Famotidine 20 mg 03/05/18 17:18 03/05/18 17:30 Pepcid 20 Mg PO 03/05/18 17:19 Not Given STAT ONE Famotidine Confirm 03/05/18 17:22 Pepcid 20 Mg Vial Administered 03/05/18 17:23 Dose 20 mg IV .STK-MED ONE Famotidine 20 mg 03/05/18 17:30 03/05/18 17:31 Pepcid 20 Mg Vial IV 03/05/18 17:31 20 mg STAT ONE Administration Lidocaine HCl Confirm 03/05/18 17:23 Xylocaine Hcl Viscous * Administered 03/05/18 17:24 Dose 15 ml .ROUTE .STK-MED ONE Magnesium Hydroxide 45 ml 03/05/18 17:18 03/05/18 17:27 Gi Cocktail 45 Ml (Maalox/Lidocaine) PO 03/05/18 17:19 45 ml STAT ONE Administration Lab/Rad Data: Laboratory Result Diagrams 03/05/18 16:45 03/05/18 16:45 Laboratory Results 03/05/18 03/05/18 03/05/18 Range/Units 16:45 16:45 16:45 WBC (4.0-10.5) K/mm3 RBC (4.1-5.4) M/mm3 Hgb (12.0-16.0) gm/dl Hct (35-47) % MCV (78-100) fl MCH (26-32) pg MCHC (32-36) g/dl RDW (11.5-14.0) % Plt Count (150-450) K/mm3 MPV (6-9.5) fl Gran % (36.0-66.0) % Eos # (Auto) (0-0.5) Absolute Lymphs (auto) (1.0-4.6) Absolute Monos (auto) (0.0-1.3) Lymphocytes % (24.0-44.0) % Monocytes % (0.0-12.0) % Eosinophils % (0.00-5.0) % Basophils % (0.0-0.4) % Absolute Granulocytes (1.4-6.9) Basophils # (0-0.4) PT 11.8 (9.95-12.35) SECONDS INR 1.06 (0.8-3.0) Sodium 137 (137-145) mmol/L Potassium 4.5 (3.5-5.1) mmol/L Chloride 101 (98-107) mmol/L Carbon Dioxide 27 (22-30) mmol/L Anion Gap 13.6 (5-15) MEQ/L BUN 35 H (7-17) mg/dL Creatinine 1.13 H (0.52-1.04) mg/dL Estimated GFR 48.2 ML/MIN Glucose 230 H (74-106) mg/dL Calcium 10.0 (8.4-10.2) mg/dL Total Bilirubin 0.80 (0.2-1.3) mg/dL AST 30 (14-36) U/L ALT 15 (0-35) U/L Alkaline Phosphatase 101 (38-126) U/L Creatine Kinase 41 (30-135) U/L Troponin I < 0.012 (0.000-0.034) ng/mL NT-Pro-B Natriuret Pep 378 (0-1800) pg/mL Serum Total Protein 7.2 (6.3-8.2) g/dL Albumin 3.6 (3.5-5.0) g/dL 03/05/18 Range/Units 16:45 WBC 6.5 (4.0-10.5) K/mm3 RBC 3.47 L (4.1-5.4) M/mm3 Hgb 10.5 L (12.0-16.0) gm/dl Hct 32.7 L (35-47) % MCV 94.2 (78-100) fl MCH 30.2 (26-32) pg MCHC 32.1 (32-36) g/dl RDW 14.0 (11.5-14.0) % Plt Count 267 (150-450) K/mm3 MPV 11.2 H (6-9.5) fl Gran % 67.2 H (36.0-66.0) % Eos # (Auto) 0.13 (0-0.5) Absolute Lymphs (auto) 1.28 (1.0-4.6) Absolute Monos (auto) 0.70 (0.0-1.3) Lymphocytes % 19.8 L (24.0-44.0) % Monocytes % 10.8 (0.0-12.0) % Eosinophils % 2.0 (0.00-5.0) % Basophils % 0.2 (0.0-0.4) % Absolute Granulocytes 4.34 (1.4-6.9) Basophils # 0.01 (0-0.4) PT (9.95-12.35) SECONDS INR (0.8-3.0) Sodium (137-145) mmol/L Potassium (3.5-5.1) mmol/L Chloride (98-107) mmol/L Carbon Dioxide (22-30) mmol/L Anion Gap (5-15) MEQ/L BUN (7-17) mg/dL Creatinine (0.52-1.04) mg/dL Estimated GFR ML/MIN Glucose (74-106) mg/dL Calcium (8.4-10.2) mg/dL Total Bilirubin (0.2-1.3) mg/dL AST (14-36) U/L ALT (0-35) U/L Alkaline Phosphatase (38-126) U/L Creatine Kinase (30-135) U/L Troponin I (0.000-0.034) ng/mL NT-Pro-B Natriuret Pep (0-1800) pg/mL Serum Total Protein (6.3-8.2) g/dL Albumin (3.5-5.0) g/dL - Progress Progress: improved Air Movement: good Progress Note: 03/05/18 19:07 I informed patient and her daughter about the test results, called Dr Chowdary, covering Dr Carr, discussed this patient's findings and current condition, he agreed to admit her for Observation. I informed patient and her daughter, they agreed. Discussed with : Leobardo Will see patient in: hospital (observation) Counseled pt/family regarding: lab results, diagnosis, rad results - Departure Time of Disposition: 19:08 Departure Disposition: Observation Clinical Impression: Chest pain Qualifiers: Chest pain type: unspecified Qualified Code(s): R07.9 - Chest pain, unspecified Condition: Stable Critical Care Time: No Referrals: PASTORA CARR [Primary Care Provider] -
[2018-03-05 17:14] LABS: ALBUMIN 3.6 g/dL (3.5-5.0); ANION GAP 13.6 MEQ/L (5-15); BILIRUBIN,TOTAL 0.8 mg/dL (0.2-1.3); Creatinine 1 1.13 mg/dL (0.52-1.04); Potassium 4.5 mmol/L (3.5-5.1); Total Protein 7.2 g/dL (6.3-8.2)
[2018-03-05 17:17] LABS: Mean Corpuscular Hemoglobin 30.2 pg (26-32)
[2018-03-05] MEDS ORDERED: Pepcid 20 MG PO ONE (17:18)
[2018-03-05] MEDS ORDERED: GI COCKTAIL 45 ML (Maalox/Lidocaine) PO ONE (17:18)
[2018-03-05] MEDS ORDERED: Pepcid 20 MG VIAL IV ONE ×2 (17:22→17:30)
[2018-03-05] MEDS ORDERED: MAALOX ES 30 ML UNIT DOSE ONE (17:23)
[2018-03-05] MEDS ORDERED: XYLOCAINE HCl Viscous ONE (17:23)
[2018-03-05] MEDS ORDERED: MILK OF MAGNESIA 30 ML PO PRN (19:05)
[2018-03-05] MEDS ORDERED: MAALOX ES 30 ML UNIT DOSE PO PRN (19:05)
[2018-03-05] MEDS ORDERED: TYLENOL 325 MG PO PRN (19:05)
[2018-03-05] MEDS ORDERED: Senokot-S Tablet PO PRN (19:05)
[2018-03-05] MEDS ORDERED: Zofran 4 MG/2 ML VIAL IV PRN (19:05)
[2018-03-05] MEDS ORDERED: Nitrostat 0.4 MG Tablet SL PRN (19:05)
--- NOTE | 2018-03-05 21:11 | XRAY ---
Indication: Chest pain. Comparison: February 24, 2018. Portable chest again demonstrates scattered calcific granulomas and anatomic variant for azygos lobe. No focal infiltrate, consolidation, or large effusion. Heart is not enlarged. Bony thorax intact again with osteopenia and degenerative changes. Impression: Stable nonacute chest with chronic features.
[2018-03-05] MEDS ORDERED: TYLENOL 325 MG PO SCH (22:00)
[2018-03-05] MEDS ORDERED: Ranexa 500 MG PO ONE (22:00)
[2018-03-05] MEDS ORDERED: TYLENOL 325 MG ONE (22:43)
[2018-03-05] MEDS ORDERED: ZOCOR 20MG ONE (22:44)
[2018-03-05] MEDS: Toprol-Xl 25MG Tablets PO SCH (23:25)
[2018-03-05] MEDS: Adalat CC 30 MG TABLET PO SCH (23:25)
[2018-03-05] MEDS: FEOSOL 325 MG PO SCH (23:26)
[2018-03-05] MEDS: Sodium Chloride 0.9% 10 ML FLUSH Syringe IV SCH (23:27)
[2018-03-05] MEDS: NovoLOG Insulin SQ PRN (23:27)
[2018-03-05] MEDS: TYLENOL 325 MG PO SCH (23:29)
[2018-03-06 06:15] LABS: ANION GAP 13.7 MEQ/L (5-15); Calcium 10.2 mg/dL (8.4-10.2); Creatinine 1 1.18 mg/dL (0.52-1.04); Potassium 3.6 mmol/L (3.5-5.1)
[2018-03-06 06:20] LABS: Cholesterol 154 mg/dL (50-200); HDL CHOLESTEROL 30 mg/dL (40-60); Risk Ratio 5.1; TRIGLYCERIDE 302 mg/dL (30-150)
[2018-03-06 06:30] LABS: LDL, DIRECT 61 mg/dL (30-100)
[2018-03-06 06:44] LABS: TROPONIN < 0.012 ng/mL (0.000-0.034)
[2018-03-06] MEDS: Sodium Chloride 0.9% 10 ML FLUSH Syringe IV SCH (07:49)
[2018-03-06] MEDS ORDERED: TYLENOL 325 MG PO PRN (07:57)
[2018-03-06] MEDS: Adalat CC 30 MG TABLET PO SCH (09:27)
[2018-03-06] MEDS: FEOSOL 325 MG PO SCH (09:27)
[2018-03-06] MEDS: Toprol-Xl 25MG Tablets PO SCH (09:27)
[2018-03-06] MEDS: TYLENOL 325 MG PO SCH (09:27)
[2018-03-06] MEDS ORDERED: Micardis 80 MG Tablet PO SCH (10:00)
[2018-03-06] MEDS ORDERED: ECOTRIN 81 MG PO SCH (10:00)
[2018-03-06] MEDS ORDERED: BABY ASPIRIN 81 MG CHEW PO SCH (10:00)
[2018-03-06] MEDS ORDERED: Amaryl 2 MG PO SCH (10:00)
[2018-03-06] MEDS ORDERED: Imdur 30 MG PO SCH (10:00)
[2018-03-06] MEDS ORDERED: ENOXAPARIN SODIUM SQ SCH (10:00)
[2018-03-06] MEDS ORDERED: Ecotrin 325 MG PO SCH (10:00)
[2018-03-06] MEDS ORDERED: Klor Con 10 MEQ PO SCH (10:00)
[2018-03-06] MEDS ORDERED: Januvia 50 MG PO SCH (10:00)
[2018-03-06] MEDS ORDERED: Lasix 40 MG PO SCH (10:00)
--- NOTE | 2018-03-06 10:18 | HP ---
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 She reports she was having substernal chest pain that radiated to both her arms and across her chest on the evening of 02/23/2018. She reports she had been given Nitro by Dr. Villa at home but this did not help. She also had some shortness of breath and felt warm with this. She reports it eventually did go away here in the hospital but was still present even when she was admitted to the floor. She reports she did see Dr. Villa just a couple of weeks ago. She was here last weekend with similar complaints and rule out for acute myocardial infarction. She reports that Dr. Villa was not aware of this hospitalization or her last one. Her sister is at the bedside today and states she was with her patient when she started having the chest pain yesterday. From my records the patient has a history of four stents. I am not sure when her last heart catheterization was. Her admission note from two weekends ago stated that the patient did not want any further procedures. However, now she has started to have more pain so we are going to ask Dr. Villa to go ahead and see her again. She denies any heartburn whatsoever. She reports that the pain happens when she is at rest. REVIEW OF SYSTEMS: Poor appetite, baseline shortness of breath. She reports she always has feeling in her lower leg. She reports for years her left lower leg has had some redness associated with having old injury. She reports feeling tired in general. No cough. No rhinorrhea. No fever. PAST MEDICAL HISTORY: Rheumatoid arthritis, osteoarthritis, history of breast cancer, diabetes mellitus type 2, coronary artery disease for which she sees Dr. Villa for, history of four stents, hyperlipidemia, hypertension, chronic kidney disease for which she sees Dr. De La Paz for, history of pulmonary embolism, interstitial lung disease, myelodysplastic syndrome which she sees Dr. Smith for. The pulmonary embolism was in January of 2009. PAST SURGICAL HISTORY: Appendectomy, right breast lumpectomy, cholecystectomy, hysterectomy, bilateral knee replacement, bowel resection in November 2005 with ostomy, colonoscopy in 2015, upper endoscopy 2015. MEDICATIONS: Tylenol 650 mg p.o. b.i.d. scheduled and b.i.d. PRN, aspirin 81 mg p.o. daily, atorvastatin 40 mg p.o. q.h.s., Aricept 10 mcg every four weeks, ferrous sulfate 325 mg p.o. b.i.d., Furosemide 40 mg in the morning and 20 mg in the afternoon, Glimepiride 2 mg daily, isosorbide mononitrate 30 mg daily, metoprolol succinate 25 mg b.i.d., Nifedipine XL 30 mg b.i.d., nitroglycerin 0.4 mg sublingual every four hours as needed x3, potassium chloride 10 mEq p.o. daily, Januvia 25 mg p.o. daily, Micardis 80 mg p.o. daily. ALLERGIES: ATROPINE, BENADRYL, DEMEROL, GLUCOPHAGE, MORPHINE, NUBAIN, PHENERGAN, QUININE, STADOL, SULFA. SOCIAL HISTORY: She lives in assisted living. She quit smoking in 1984. No alcohol use. FAMILY HISTORY: Her mother had malignant melanoma. Her father's history is unknown. PHYSICAL EXAMINATION: VITAL SIGNS: Temperature current 97.6F, temperature max 97.9F, heart rate 63 to 83, respiratory rate 20, blood pressure 102 to 161 over 55 to 74 currently 102/55, weight 73.4 kg. Oxygen saturation 97% on 2 liters nasal cannula. GENERAL: The patient is sitting up in her chair, a pleasant talkative lady in no acute distress. She is alert and oriented x3. CVS: She has a regular rate and rhythm. No murmurs, gallops or rubs are appreciated. CHEST: Clear to auscultation bilaterally. No crackles or wheezes. ABDOMEN: Soft, nontender, nondistended with normal bowel sounds. EXTREMITIES: No clubbing or cyanosis. She has +1 edema to her mid shins, some mild erythema of the left lower leg. SKIN: Intact. LABORATORY DATA AND TESTS: Hemoglobin 10.5. Creatinine 1.18, glucose 125. She had five serial troponins that have been negative. Triglycerides 302, cholesterol 154, LDL 61, HDL 30. EKG she had right bundle branch block this morning. She had some nonspecific T-wave changes in the anterior-lateral leads. No ST elevation. Heart rate is 70. ASSESSMENT AND PLAN: 1) CHEST PAIN: She has ruled out for acute myocardial infarction but this is her second hospitalization here in the past ten days for chest pain. Will ask for tele-cardiology consult with her business records manager, Dr. Villa, and continue her current medications. 2) HISTORY OF CHRONIC KIDNEY DISEASE: Will continue to monitor closely. 3) HISTORY OF ANEMIA: Hemoglobin is currently stable. 4) INTERSTITIAL LUNG DISEASE WITH HYPOXIA: Will continue oxygen as needed. 5) HYPOTENSION: Will continue her current home medications.
[2018-03-06 11:16] VITALS: BP 106/68; PULSE 80; O2SAT 95
[2018-03-06] MEDS: NovoLOG Insulin SQ PRN (11:49)
[2018-03-06] MEDS ORDERED: LASIX 20 MG PO SCH (15:00)
[2018-03-06] MEDS ORDERED: ARANESP SQ ONE (15:30)
[2018-03-06] MEDS ORDERED: ZOCOR 20MG PO SCH (22:00)
== END 2018-03-06 15:25 | disposition home or self-care (01) ==
LOC: ED 16:13 → MED SURG 19:45
PROVIDERS: ADMIT Internal Medicine; ATTEND Internal Medicine
DX: R07.89 Other chest pain (principal); I12.9 Hypertensive chronic kidney disease with stage 1 through stage 4 chronic kidney disease, or unspecified chronic kidney disease; N18.9 Chronic kidney disease, unspecified; J84.89 Other specified interstitial pulmonary diseases; R09.02 Hypoxemia; I95.9 Hypotension, unspecified; I25.10 Atherosclerotic heart disease of native coronary artery without angina pectoris; M06.9 Rheumatoid arthritis, unspecified; M19.90 Unspecified osteoarthritis, unspecified site; Z85.3 Personal history of malignant neoplasm of breast; E11.9 Type 2 diabetes mellitus without complications; E78.5 Hyperlipidemia, unspecified; Z86.711 Personal history of pulmonary embolism; D46.9 Myelodysplastic syndrome, unspecified; Z79.899 Other long term (current) drug therapy
CPT/HCPCS: 36000; 36415; 71045; 80048; 80053; 80061; 82550; 83036; 83721; 83880; 84484; 85025; 85610; 93005; 93041; 93268; 94760; 99285; J0881; J1650; A9270-GY; G0378

== ENCOUNTER 2018-04-01 16:10 | Emergency (ER) | payer MEDICARE | END 2018-04-01 16:22 | disposition home or self-care (01) | LOC: ED 16:10 ==

== ENCOUNTER 2018-04-01 16:13 | Emergency (ER) | payer MEDICARE ==
--- NOTE | 2018-04-01 16:26 | ERPHSYRPT ---
- History of Present Illness Time Seen by Provider: 04/01/18 16:21 Source: patient, EMS Patient Subjective Stated Complaint: pt here for swelling to lower legs that is worse than normal and daughter wanted her checked out. pt has no cos at present time Triage Nursing Assessment: pt alert, resp easy, skin w/d/p. has edema to lower legs,legs with rough flaky skin. left berg slightly red Physician History: hx edema, NH pt w/ increased leg edema bilateral, +RITCHIE, no fever, speech fluent Timing/Duration: today Allergies/Adverse Reactions: butorphanol tartrate [From Stadol] Allergy (Severe, Verified 04/01/18 16:19) diphenhydramine HCl [From Benadryl] Allergy (Severe, Verified 04/01/18 16:19) indomethacin [From Indocin] Allergy (Severe, Verified 04/01/18 16:19) indomethacin sodium [From Indocin] Allergy (Severe, Verified 04/01/18 16:19) leflunomide [From Arava] Allergy (Severe, Verified 04/01/18 16:19) meperidine HCl [From Demerol] Allergy (Severe, Verified 04/01/18 16:19) metformin HCl [From Glucophage] Allergy (Severe, Verified 04/01/18 16:19) morphine Allergy (Severe, Verified 04/01/18 16:19) nalbuphine HCl [From Nubain] Allergy (Severe, Verified 04/01/18 16:19) promethazine HCl [From Phenergan] Allergy (Severe, Verified 04/01/18 16:19) quinine [Quinine] Allergy (Severe, Verified 04/01/18 16:19) Sulfa (Sulfonamide Antibiotics) [Sulfa(Sulfonamide Antibiotics)] Allergy (Severe , Verified 04/01/18 16:19) infliximab [From Remicade] Adverse Reaction (Unknown, Verified 04/01/18 16:19) Home Medications: Furosemide 40 mg [Lasix 40 MG] 20 mg PO UD 03/17/12 [History] Glimepiride 2 mg [Amaryl 2 MG] 2 mg PO DAILY 03/17/12 [History] Metoprolol Succinate 25 mg Xl* [Toprol-Xl 25MG Tablets] 25 mg PO BID [History] Telmisartan 80 mg [Micardis 80 MG Tablet] 80 mg PO DAILY 11/26/14 [History ] Aspirin 81 gm Chew [Baby Aspirin 81 mg Chew] 81 mg PO DAILY 12/09/15 [ History] Atorvastatin Calcium [Lipitor 40Mg] 40 mg PO QHS 07/23/16 [History] Nifedipine Xl 30 mg [Adalat CC 30 MG TABLET] 30 mg PO BID 10/25/17 [ History] Potassium Chloride 10 Meq Tab* [Klor Con 10 MEQ] 10 meq PO DAILY 10/25/17 [ History] Sitagliptin Phosphate 50 MG [Januvia 50 MG] 25 mg PO DAILY 10/25/17 [ History] Acetaminophen [Tylenol Arthritis] 650 mg PO BID 11/16/17 [History] Ferrous Sulfate 325 mg [Feosol 325 mg] 325 mg PO BID 12/27/17 [History] Darbepoetin Stephen in Polysorbat [Aranesp] 10 mcg IJ UD 03/05/18 [History] Nitroglycerin 0.4 mg SL Q5MIN PRN MR X 3 PRN 03/05/18 [History] Hx Tetanus, Diphtheria Vaccination/Date Given: Yes Hx Influenza Vaccination/Date Given: Yes Hx Pneumococcal Vaccination/Date Given: Yes Immunizations Up to Date: Yes - Review of Systems Constitutional: No Fever Eyes: No Eye Redness Ears, Nose, & Throat: No Mouth Pain Respiratory: Dyspnea, Dyspnea on Exertion (RITCHIE) Cardiac: No Chest Pain Abdominal/Gastrointestinal: No Abdominal Pain Genitourinary Symptoms: No Dysuria Musculoskeletal: No Back Pain, No Neck Pain Neurological: No Dizziness - Past Medical History Pertinent Past Medical History: Yes Neurological History: Dementia ENT History: Cataracts Cardiac History: Angina, Coronary Artery Disease, High Cholesterol, Hypertension , Myocardial Infarction ([place]) Respiratory History: CHF, Pulmonary Embolism, Other Endocrine Medical History: Diabetes Type II Musculoskeletal History: Arthritis, Fractures, Osteoarthritis, Rheumatoid Arthritis GI Medical History: No Pertinent History History: No Pertinent History Psycho-Social History: No Pertinent History Female Reproductive Disorders: Breast Cancer, Fibroids Other Medical History: interstial lung disease, pt states hairline fx in foot, MDS - Past Surgical History Past Surgical History: Yes Neuro Surgical History: No Pertinent History Cardiac: Cardiac Catheterization, Cardiac Stent Respiratory: Other Gastrointestinal: Appendectomy, Bowel Surgery, Other Genitourinary: No Pertinent History Musculoskeletal: Joint Replacement Female Surgical History: Hysterectomy, Lumpectomy, Other Other Surgical History: colostomy - Social History Smoking Status: Former smoker How long have you smoked: 15 Exposure to second hand smoke: No Drug Use: none Patient Lives Alone: No - Female History Hx Last Menstrual Period: post - Nursing Vital Signs Nursing Vital Signs: Initial Vital Signs Temperature 97.9 F 04/01/18 16:14 Pulse Rate 79 04/01/18 16:14 Respiratory Rate 16 04/01/18 16:14 Blood Pressure 158/76 04/01/18 16:14 O2 Sat by Pulse Oximetry 97 04/01/18 16:14 Pain Scale Pain Intensity 0 - Physical Exam General Appearance: no apparent distress Eye Exam: eyes nml inspection Ears, Nose, Throat Exam: moist mucous membranes Neck Exam: No meningismus Respiratory Exam: normal breath sounds Cardiovascular Exam: regular rate/rhythm Gastrointestinal/Abdomen Exam: soft, No tenderness Extremity Exam: other (bilateral edema, sen and pulses intact) Neurologic Exam: alert, cooperative Skin Exam: warm, dry SpO2 Interpretation: normal SpO2: 97 Oxygen Delivery: Room Air - Course Nursing assessment & vital signs reviewed: Yes EKG Interpreted by Me: Other (nsr 77, no stemi) Ordered Tests: Active Orders 24 hr Category Date Time Status Digital Pre Press Operator STAT Care 04/01/18 16:19 Active EKG-ER Only STAT Care 04/01/18 16:18 Active IV Insertion STAT Care 04/01/18 17:22 Active CHEST 1 VIEW (PORTABLE) Stat Exams 04/01/18 16:19 Taken CBC W DIFF Stat Lab 04/01/18 16:33 Completed CK-Creatinine Phosphokinase Stat Lab 04/01/18 16:33 Completed CMP Stat Lab 04/01/18 16:33 Completed D-DIMER QUANTITATION Stat Lab 04/01/18 16:33 Completed NT PRO BNP Stat Lab 04/01/18 16:33 Completed PROTIME WITH INR Stat Lab 04/01/18 16:33 Completed TROPONIN Q3H Lab 04/01/18 16:33 Completed TROPONIN Q3H Lab 04/01/18 19:30 Ordered TROPONIN Q3H Lab 04/01/18 22:30 Ordered TROPONIN Q3H Lab 04/02/18 01:30 Ordered TROPONIN Q3H Lab 04/02/18 04:30 Ordered Medication Summary Generic Name Dose Route Start Last Admin Trade Name Harry PRN Reason Stop Dose Admin Furosemide 20 mg 04/02/18 10:00 04/01/18 17:30 Lasix 20 Mg/2 Ml IV 05/02/18 09:59 20 mg DAILY MARIS Administration Discontinued Medications Generic Name Dose Route Start Last Admin Trade Name Harry PRN Reason Stop Dose Admin Furosemide Confirm 04/01/18 17:27 Lasix 40 Mg/4 Ml Administered 04/01/18 17:28 Dose 40 mg .ROUTE .[facility] ONE Lab/Rad Data: Laboratory Result Diagrams 04/01/18 16:33 04/01/18 16:33 Laboratory Results 04/01/18 04/01/18 04/01/18 Range/Units 16:33 16:33 16:33 WBC (4.0-10.5) K/mm3 RBC (4.1-5.4) M/mm3 Hgb (12.0-16.0) gm/dl Hct (35-47) % MCV (78-100) fl MCH (26-32) pg MCHC (32-36) g/dl RDW (11.5-14.0) % Plt Count (150-450) K/mm3 MPV (6-9.5) fl Gran % (36.0-66.0) % Eos # (Auto) (0-0.5) Absolute Lymphs (auto) (1.0-4.6) Absolute Monos (auto) (0.0-1.3) Lymphocytes % (24.0-44.0) % Monocytes % (0.0-12.0) % Eosinophils % (0.00-5.0) % Basophils % (0.0-0.4) % Absolute Granulocytes (1.4-6.9) Basophils # (0-0.4) PT 12.2 (9.95-12.35) SECONDS INR 1.05 (0.8-3.0) D-Dimer 2090 H* (215-500) ng/mL Sodium 140 (137-145) mmol/L Potassium 3.6 (3.5-5.1) mmol/L Chloride 105 (98-107) mmol/L Carbon Dioxide 25 (22-30) mmol/L Anion Gap 13.0 (5-15) MEQ/L BUN 31 H (7-17) mg/dL Creatinine 1.19 H (0.52-1.04) mg/dL Estimated GFR 45.4 ML/MIN Glucose 181 H (74-106) mg/dL Calcium 10.1 (8.4-10.2) mg/dL Total Bilirubin 0.30 (0.2-1.3) mg/dL AST 14 (14-36) U/L ALT 12 (0-35) U/L Alkaline Phosphatase 118 (38-126) U/L Creatine Kinase 30 (30-135) U/L Troponin I < 0.012 (0.000-0.034) ng/mL NT-Pro-B Natriuret Pep 393 (0-1800) pg/mL Serum Total Protein 6.6 (6.3-8.2) g/dL Albumin 3.5 (3.5-5.0) g/dL 04/01/18 Range/Units 16:33 WBC 6.8 (4.0-10.5) K/mm3 RBC 3.12 L (4.1-5.4) M/mm3 Hgb 9.7 L (12.0-16.0) gm/dl Hct 29.9 L (35-47) % MCV 95.8 (78-100) fl MCH 31.0 (26-32) pg MCHC 32.4 (32-36) g/dl RDW 13.3 (11.5-14.0) % Plt Count 264 (150-450) K/mm3 MPV 9.8 H (6-9.5) fl Gran % 70.9 H (36.0-66.0) % Eos # (Auto) 0.15 (0-0.5) Absolute Lymphs (auto) 1.11 (1.0-4.6) Absolute Monos (auto) 0.69 (0.0-1.3) Lymphocytes % 16.4 L (24.0-44.0) % Monocytes % 10.2 (0.0-12.0) % Eosinophils % 2.2 (0.00-5.0) % Basophils % 0.3 (0.0-0.4) % Absolute Granulocytes 4.80 (1.4-6.9) Basophils # 0.02 (0-0.4) PT (9.95-12.35) SECONDS INR (0.8-3.0) D-Dimer (215-500) ng/mL Sodium (137-145) mmol/L Potassium (3.5-5.1) mmol/L Chloride (98-107) mmol/L Carbon Dioxide (22-30) mmol/L Anion Gap (5-15) MEQ/L BUN (7-17) mg/dL Creatinine (0.52-1.04) mg/dL Estimated GFR ML/MIN Glucose (74-106) mg/dL Calcium (8.4-10.2) mg/dL Total Bilirubin (0.2-1.3) mg/dL AST (14-36) U/L ALT (0-35) U/L Alkaline Phosphatase (38-126) U/L Creatine Kinase (30-135) U/L Troponin I (0.000-0.034) ng/mL NT-Pro-B Natriuret Pep (0-1800) pg/mL Serum Total Protein (6.3-8.2) g/dL Albumin (3.5-5.0) g/dL - Progress Progress Note: 04/01/18 17:45 unable to secure a vq scan at [place], pt chooses [facility], Dr Haq accepts transfer Counseled pt/family regarding: lab results, diagnosis, need for follow-up - Departure Time of Disposition: 17:45 Departure Disposition: Transfer Clinical Impression: D-dimer, elevated Edema Qualifiers: Edema type: unspecified Qualified Code(s): R60.9 - Edema, unspecified Condition: Stable Critical Care Time: No Referrals: PASTORA GARVEY [Primary Care Provider] -
[2018-04-01 16:39] LABS: BASOPHIL % 0.3 % (0.0-0.4); Basophil (Absolute #) 0.02 (0-0.4); Eosinophil % 2.2 % (0.00-5.0); Eosinophil (Absolute #) 0.15 (0-0.5); Granulocytes % 70.9 % (36.0-66.0); Hematocrit 29.9 % (35-47); Hemoglobin 9.7 gm/dl (12.0-16.0); Lymphocyte (Absolute #) 1.11 (1.0-4.6); Lymphocytes % 16.4 % (24.0-44.0); Mean Cell Volume 95.8 fl (78-100); Mean Corpuscular Hgb Concent. 32.4 g/dl (32-36); Mean Platelet Volume 9.8 fl (6-9.5); Monocyte (Absolute #) 0.69 (0.0-1.3); Monocytes % 10.2 % (0.0-12.0); Platelet Count 264 K/mm3 (150-450); Red Blood Count 3.12 M/mm3 (4.1-5.4); Red Cell Distribution Width 13.3 % (11.5-14.0); White Blood Count 6.8 K/mm3 (4.0-10.5)
[2018-04-01 16:49] LABS: INR 1.05 (0.8-3.0)
[2018-04-01 16:53] LABS: ALBUMIN 3.5 g/dL (3.5-5.0); BILIRUBIN,TOTAL 0.3 mg/dL (0.2-1.3); Calcium 10.1 mg/dL (8.4-10.2); Creatinine 1 1.19 mg/dL (0.52-1.04); Potassium 3.6 mmol/L (3.5-5.1); Total Protein 6.6 g/dL (6.3-8.2)
[2018-04-01] MEDS ORDERED: Lasix 40 MG/4 ML ONE (17:27)
[2018-04-01 19:10] VITALS: PULSE 76
[2018-04-01 20:09] VITALS: BP 164/77; O2SAT 97
--- NOTE | 2018-04-01 21:43 | XRAY ---
Indication: Edema. Comparison: March 05, 2018. Portable chest unchanged again demonstrating chronic lung markings, scattered calcified granulomas, and azygos lobe. Heart is not enlarged. No new/acute findings.
[2018-04-02] MEDS ORDERED: Lasix 20 MG/2 ML IV SCH (10:00)
== END 2018-04-01 21:07 | disposition short-term general hospital (02) ==
LOC: ED 16:13
DX: R79.1 Abnormal coagulation profile (principal); R60.0 Localized edema; Z79.82 Long term (current) use of aspirin; Z79.899 Other long term (current) drug therapy; N28.9 Disorder of kidney and ureter, unspecified
CPT/HCPCS: 36000; 36415; 71045; 80053; 82550; 83880; 84484; 85025; 85379; 85610; 93005; 93041; 96374; 99285; J1940

== ENCOUNTER 2018-04-20 01:21 | Emergency (ER) | payer MEDICARE ==
[2018-04-20] MEDS ORDERED: Sodium Chloride 0.9% 1000 ML 1,000 ML IV STA (01:38)
--- NOTE | 2018-04-20 01:44 | ERPHSYRPT ---
- History of Present Illness Time Seen by Provider: 04/20/18 01:30 Source: patient Exam Limitations: no limitations Patient Subjective Stated Complaint: Pt arrives to ER via EMS from [facility] for c/o dizziness that feels like the room is spinning and generalized weakness that began approx 0030 tonight while standing. Denies sudden change in position, tinnitus, N/V, headaches, chest pain, . pt denies any pain. Has no unilateral deficits. pt has no other c/o at this time and does not appear to be in any distress at this time with respirations easy even regular and unlabored. Triage Nursing Assessment: see above Physician History: 87 y/o female brought in by ambulance from [facility] for dizziness that started this evening. Pt states that she has vertigo as well. Pt has had these symptoms in the past and received NS fluids with improvement. Pt says she feels better than before when she felt as if she was going to fall. No changes to her medications. Pt denies any fever, chills, headache, blurry vision, weakness, chest pain, shortness of breath, palpitations, nausea, vomiting, diarrhea or urinary symptoms. Timing/Duration: today Severity: mild Character of Deficits: none Deficits: no difficulties Baseline/Normal Cognition: alert oriented x 3 Current Cognition: alert oriented x 3 Baseline Gait: uses walker Associated Symptoms: denies symptoms Allergies/Adverse Reactions: butorphanol tartrate [From Stadol] Allergy (Severe, Verified 04/20/18 01:37) diphenhydramine HCl [From Benadryl] Allergy (Severe, Verified 04/20/18 01:37) indomethacin [From Indocin] Allergy (Severe, Verified 04/20/18 01:37) indomethacin sodium [From Indocin] Allergy (Severe, Verified 04/20/18 01:37) leflunomide [From Arava] Allergy (Severe, Verified 04/20/18 01:37) meperidine HCl [From Demerol] Allergy (Severe, Verified 04/20/18 01:37) metformin HCl [From Glucophage] Allergy (Severe, Verified 04/20/18 01:37) morphine Allergy (Severe, Verified 04/20/18 01:37) nalbuphine HCl [From Nubain] Allergy (Severe, Verified 04/20/18 01:37) promethazine HCl [From Phenergan] Allergy (Severe, Verified 04/20/18 01:37) quinine [Quinine] Allergy (Severe, Verified 04/20/18 01:37) Sulfa (Sulfonamide Antibiotics) [Sulfa(Sulfonamide Antibiotics)] Allergy (Severe , Verified 04/20/18 01:37) infliximab [From Remicade] Adverse Reaction (Unknown, Verified 04/20/18 01:37) Home Medications: Furosemide 40 mg [Lasix 40 MG] 20 mg PO UD 03/17/12 [History] Glimepiride 2 mg [Amaryl 2 MG] 4 mg PO DAILY 03/17/12 [History] Metoprolol Succinate 25 mg Xl* [Toprol-Xl 25MG Tablets] 25 mg PO BID [History] Telmisartan 80 mg [Micardis 80 MG Tablet] 80 mg PO DAILY 11/26/14 [History ] Aspirin 81 gm Chew [Baby Aspirin 81 mg Chew] 81 mg PO DAILY 12/09/15 [ History] Atorvastatin Calcium [Lipitor 40Mg] 40 mg PO QHS 07/23/16 [History] Nifedipine Xl 30 mg [Adalat CC 30 MG TABLET] 30 mg PO BID 10/25/17 [ History] Potassium Chloride 10 Meq Tab* [Klor Con 10 MEQ] 10 meq PO DAILY 10/25/17 [ History] Sitagliptin Phosphate 50 MG [Januvia 50 MG] 25 mg PO DAILY 10/25/17 [ History] Acetaminophen [Tylenol Arthritis] 650 mg PO BID 11/16/17 [History] Ferrous Sulfate 325 mg [Feosol 325 mg] 325 mg PO BID 12/27/17 [History] Darbepoetin Stephen in Polysorbat [Aranesp] 300 mcg IJ UD 03/05/18 [History] Nitroglycerin 0.4 mg SL Q5MIN PRN MR X 3 PRN 03/05/18 [History] Isosorbide Mononitrate 30 mg [Imdur 30 MG] 30 mg PO BID 04/11/18 [History] Sitagliptin Phosphate [Januvia] 25 mg PO DAILY 04/11/18 [History] Hx Tetanus, Diphtheria Vaccination/Date Given: Yes Hx Influenza Vaccination/Date Given: Yes Hx Pneumococcal Vaccination/Date Given: Yes - Review of Systems Constitutional: No Fever, No Chills, No Weakness Eyes: No Symptoms Ears, Nose, & Throat: No Symptoms Respiratory: No Cough, No Dyspnea Cardiac: No Chest Pain, No Edema, No Syncope Abdominal/Gastrointestinal: No Abdominal Pain, No Nausea, No Vomiting, No Diarrhea Genitourinary Symptoms: No Dysuria Musculoskeletal: No Back Pain, No Neck Pain Skin: No Rash Neurological: No Dizziness, No Focal Weakness, No Sensory Changes Psychological: No Symptoms Endocrine: No Symptoms All Other Systems: Reviewed and Negative - Past Medical History Pertinent Past Medical History: Yes Neurological History: Dementia ENT History: Cataracts Cardiac History: Angina, Coronary Artery Disease, High Cholesterol, Hypertension , Myocardial Infarction ([place]) Respiratory History: CHF, Pulmonary Embolism, Other Endocrine Medical History: Diabetes Type II Musculoskeletal History: Arthritis, Fractures, Osteoarthritis, Rheumatoid Arthritis GI Medical History: No Pertinent History History: No Pertinent History Psycho-Social History: No Pertinent History Female Reproductive Disorders: Breast Cancer, Fibroids Other Medical History: interstial lung disease, pt states hairline fx in foot, MDS - Past Surgical History Past Surgical History: Yes Neuro Surgical History: No Pertinent History Cardiac: Cardiac Catheterization, Cardiac Stent Respiratory: Other Gastrointestinal: Appendectomy, Bowel Surgery, Other Genitourinary: No Pertinent History Musculoskeletal: Joint Replacement Female Surgical History: Hysterectomy, Lumpectomy, Other Other Surgical History: colostomy - Social History Smoking Status: Former smoker How long have you smoked: 15 Exposure to second hand smoke: Yes Drug Use: none Patient Lives Alone: No - Female History Hx Now: No - Nursing Vital Signs Nursing Vital Signs: Initial Vital Signs Temperature 97.6 F 04/20/18 01:26 Pulse Rate 74 04/20/18 01:26 Respiratory Rate 18 04/20/18 01:26 Blood Pressure 143/84 04/20/18 01:26 O2 Sat by Pulse Oximetry 97 04/20/18 01:26 Pain Scale Pain Intensity 0 - Emilia Coma Scale Best Eye Response (Emilia): (4) open spontaneously Best Verbal Response ([place]): (5) oriented Best Motor Response (Emilia): (6) obeys commands [place] Total: 15 - Physical Exam General Appearance: no apparent distress, alert Eye Exam: bilateral eye: PERRL, EOMI Ears, Nose, Throat Exam: normal ENT inspection, moist mucous membranes Neck Exam: normal inspection, non-tender, supple Respiratory: normal breath sounds, lungs clear, airway intact, No respiratory distress Cardiovascular: regular rate/rhythm, normal heart sounds, normal peripheral pulses, No edema Gastrointestinal: soft, normal bowel sounds, No tenderness, No distention Back Exam: normal inspection, normal range of motion Extremity Exam: normal inspection, normal range of motion, No pedal edema Mental Status: alert, oriented x 3, cooperative newspaper photographer Exam: normal hearing, normal speech, PERRL, tongue midline Coordination/Gait: normal finger to nose, normal gait Motor/Sensory: no motor deficit, no sensory deficit, no pronator drift Skin Exam: normal color, warm, dry, No rash SpO2 Interpretation: normal SpO2: 97 Oxygen Delivery: Room Air - Course Nursing assessment & vital signs reviewed: Yes EKG Interpreted by Me: RATE, NORMAL AXIS, NORMAL INTERVALS, Right Bundle Branch Block, NORMAL ST-T Ordered Tests: Active Orders 24 hr Category Date Time Status Dealer Card Room STAT Care 04/20/18 01:38 Active EKG-ER Only STAT Care 04/20/18 01:38 Active IV Insertion STAT Care 04/20/18 01:38 Active Orthostatic Vital Signs STAT Care 04/20/18 01:38 Active CHEST 1 VIEW (PORTABLE) Stat Exams 04/20/18 01:38 Taken CBC W DIFF Stat Lab 04/20/18 01:45 Completed CMP Stat Lab 04/20/18 01:45 Completed MAGNESIUM Stat Lab 04/20/18 01:45 Completed TROPONIN Q3H Lab 04/20/18 01:45 Completed TROPONIN Q3H Lab 04/20/18 04:45 Ordered TROPONIN Q3H Lab 04/20/18 07:45 Ordered TROPONIN Q3H Lab 04/20/18 10:45 Ordered TROPONIN Q3H Lab 04/20/18 13:45 Ordered UA W/RFX UR CULTURE Stat Lab 04/20/18 01:38 Completed Medication Summary Discontinued Medications Generic Name Dose Route Start Last Admin Trade Name Freq PRN Reason Stop Dose Admin Sodium Chloride 1,000 mls @ 999 mls/hr 04/20/18 01:38 04/20/18 02:04 Sodium Chloride 0.9% 1000 Ml IV 04/20/18 02:38 999 mls/hr .Q1H1M STA Administration Sodium Chloride Confirm 04/20/18 01:45 Sodium Chloride 0.9% 1000 Ml Administered 04/20/18 01:46 Dose 1,000 mls @ .ROUTE .[facility] Lab/Rad Data: Laboratory Result Diagrams 04/20/18 01:45 04/20/18 01:45 Laboratory Results 04/20/18 04/20/18 04/20/18 Range/Units 01:45 01:45 01:45 WBC 8.8 (4.0-10.5) K/mm3 RBC 3.55 L (4.1-5.4) M/mm3 Hgb 11.1 L (12.0-16.0) gm/dl Hct 34.3 L (35-47) % MCV 96.6 (78-100) fl MCH 31.2 (26-32) pg MCHC 32.4 (32-36) g/dl RDW 14.5 H (11.5-14.0) % Plt Count 318 (150-450) K/mm3 MPV 10.5 H (6-9.5) fl Gran % 61.6 (36.0-66.0) % Eos # (Auto) 0.21 (0-0.5) Absolute Lymphs (auto) 2.09 (1.0-4.6) Absolute Monos (auto) 1.07 (0.0-1.3) Lymphocytes % 23.7 L (24.0-44.0) % Monocytes % 12.1 H (0.0-12.0) % Eosinophils % 2.4 (0.00-5.0) % Basophils % 0.2 (0.0-0.4) % Absolute Granulocytes 5.44 (1.4-6.9) Basophils # 0.02 (0-0.4) Sodium 141 (137-145) mmol/L Potassium 4.1 (3.5-5.1) mmol/L Chloride 105 (98-107) mmol/L Carbon Dioxide 22 (22-30) mmol/L Anion Gap 17.1 H (5-15) MEQ/L BUN 33 H (7-17) mg/dL Creatinine 1.24 H (0.52-1.04) mg/dL Estimated GFR 43.3 ML/MIN Glucose 112 H (74-106) mg/dL Calcium 10.5 H (8.4-10.2) mg/dL Magnesium 1.4 L (1.6-2.3) mg/dL Total Bilirubin 0.50 (0.2-1.3) mg/dL AST 17 (14-36) U/L ALT 13 (0-35) U/L Alkaline Phosphatase 135 H (38-126) U/L Troponin I < 0.012 (0.000-0.034) ng/mL Serum Total Protein 6.8 (6.3-8.2) g/dL Albumin 3.7 (3.5-5.0) g/dL Ur Collection Type Urine Color (YELLOW) Urine Appearance (CLEAR) Urine pH (5-6) Ur Specific [place] (1.005-1.025) Urine Protein (Negative) Urine Ketones (NEGATIVE) Urine Blood (0-5) Luis Alberto/ul Urine Nitrite (NEGATIVE) Urine Bilirubin (NEGATIVE) Urine Urobilinogen (0-1) mg/dL Ur Leukocyte Esterase (NEGATIVE) Urine Culture Reflexed (NO) Urine Glucose (NEGATIVE) mg/dL Specimen Received 04/20/18 Range/Units 01:38 WBC (4.0-10.5) K/mm3 RBC (4.1-5.4) M/mm3 Hgb (12.0-16.0) gm/dl Hct (35-47) % MCV (78-100) fl MCH (26-32) pg MCHC (32-36) g/dl RDW (11.5-14.0) % Plt Count (150-450) K/mm3 MPV (6-9.5) fl Gran % (36.0-66.0) % Eos # (Auto) (0-0.5) Absolute Lymphs (auto) (1.0-4.6) Absolute Monos (auto) (0.0-1.3) Lymphocytes % (24.0-44.0) % Monocytes % (0.0-12.0) % Eosinophils % (0.00-5.0) % Basophils % (0.0-0.4) % Absolute Granulocytes (1.4-6.9) Basophils # (0-0.4) Sodium (137-145) mmol/L Potassium (3.5-5.1) mmol/L Chloride (98-107) mmol/L Carbon Dioxide (22-30) mmol/L Anion Gap (5-15) MEQ/L BUN (7-17) mg/dL Creatinine (0.52-1.04) mg/dL Estimated GFR ML/MIN Glucose (74-106) mg/dL Calcium (8.4-10.2) mg/dL Magnesium (1.6-2.3) mg/dL Total Bilirubin (0.2-1.3) mg/dL AST (14-36) U/L ALT (0-35) U/L Alkaline Phosphatase (38-126) U/L Troponin I (0.000-0.034) ng/mL Serum Total Protein (6.3-8.2) g/dL Albumin (3.5-5.0) g/dL Ur Collection Type VOID Urine Color LT.YELLOW (YELLOW) Urine Appearance CLEAR (CLEAR) Urine pH 6.0 (5-6) Ur Specific [place] 1.005 (1.005-1.025) Urine Protein NEGATIVE (Negative) Urine Ketones NEGATIVE (NEGATIVE) Urine Blood NEGATIVE (0-5) Luis Alberto/ul Urine Nitrite NEGATIVE (NEGATIVE) Urine Bilirubin NEGATIVE (NEGATIVE) Urine Urobilinogen NORMAL (0-1) mg/dL Ur Leukocyte Esterase NEGATIVE (NEGATIVE) Urine Culture Reflexed NO (NO) Urine Glucose NEGATIVE (NEGATIVE) mg/dL Specimen Received 04/20/185 - Progress Progress: improved Progress Note: 04/20/18 02:45 The CXR is within normal limits. The BUN/Cr is consistent with pre-renal azotemia and pt feels better after receiving NS fluids. The cardiac workup is also within normal limits. Pt will be sent back to [facility] with a diagnosis of dizziness secondary to dehydration. - Departure Time of Disposition: 02:47 Departure Disposition: Home Clinical Impression: Dehydration, Dizziness Condition: Stable Critical Care Time: No Referrals: SHITAL COLEMAN [Primary Care Provider] - Instructions: Dizziness, Nonvertigo, (DC), Dehydration, Adult (DC) Additional Instructions: Follow up with your primary care doctor in the next 2-3 days if you should continue to have dizziness or vertigo.
[2018-04-20] MEDS ORDERED: Sodium Chloride 0.9% 1000 ML 1,000 ML ONE (01:45)
[2018-04-20 02:04] LABS: BASOPHIL % 0.2 % (0.0-0.4); Basophil (Absolute #) 0.02 (0-0.4); Eosinophil % 2.4 % (0.00-5.0); Eosinophil (Absolute #) 0.21 (0-0.5); Granulocyte Absolute (ANC) 5.44 (1.4-6.9); Granulocytes % 61.6 % (36.0-66.0); Hematocrit 34.3 % (35-47); Hemoglobin 11.1 gm/dl (12.0-16.0); Lymphocyte (Absolute #) 2.09 (1.0-4.6); Lymphocytes % 23.7 % (24.0-44.0); Mean Cell Volume 96.6 fl (78-100); Mean Corpuscular Hgb Concent. 32.4 g/dl (32-36); Mean Platelet Volume 10.5 fl (6-9.5); Monocyte (Absolute #) 1.07 (0.0-1.3); Monocytes % 12.1 % (0.0-12.0); Platelet Count 318 K/mm3 (150-450); Red Blood Count 3.55 M/mm3 (4.1-5.4); Red Cell Distribution Width 14.5 % (11.5-14.0); White Blood Count 8.8 K/mm3 (4.0-10.5)
[2018-04-20 02:12] LABS: ALBUMIN 3.7 g/dL (3.5-5.0); ANION GAP 17.1 MEQ/L (5-15); BILIRUBIN,TOTAL 0.5 mg/dL (0.2-1.3); Calcium 10.5 mg/dL (8.4-10.2); Creatinine 1 1.24 mg/dL (0.52-1.04); Potassium 4.1 mmol/L (3.5-5.1); Total Protein 6.8 g/dL (6.3-8.2)
[2018-04-20 02:22] LABS: Mean Corpuscular Hemoglobin 31.2 pg (26-32)
[2018-04-20 02:24] LABS: Appearance CLEAR (CLEAR); Bilirubin NEGATIVE (NEGATIVE); Blood NEGATIVE Ery/ul (0-5); Glucose NEGATIVE (NEGATIVE); Ketones NEGATIVE (NEGATIVE); Leukocyte Esterase NEGATIVE (NEGATIVE); Nitrite NEGATIVE (NEGATIVE); Protein,Urine Dip NEGATIVE (Negative); Specific Gravity 1.005 (1.005-1.025); Urobilinogen NORMAL mg/dL (0-1)
[2018-04-20 03:29] VITALS: BP 150/88; PULSE 80; O2SAT 96
--- NOTE | 2018-04-20 09:40 | XRAY ---
Indication: Dizziness. Comparison: April 01, 2018. Portable chest unchanged again demonstrating chronic lung markings, scattered calcified granulomas, and azygos lobe. Heart is not enlarged. No new/acute findings.
== END 2018-04-20 03:25 | disposition home or self-care (01) ==
LOC: ED 01:21
DX: E86.0 Dehydration (principal); R42 Dizziness and giddiness; R39.2 Extrarenal uremia; Z79.899 Other long term (current) drug therapy; Z79.82 Long term (current) use of aspirin; I45.10 Unspecified right bundle-branch block
CPT/HCPCS: 36000; 36415; 71045; 80053; 81002; 83735; 84484; 85025; 93005; 93041; 99284